=== PATIENT | male | born 1945 | race African-American/Black ===

== ENCOUNTER 2019-05-08 20:21 | Inpatient (IN) | payer MEDICARE, OTHER ==
[~2019-05-08] VITALS: Ht 170.2 cm; Wt 48.6 kg
--- NOTE | 2019-05-08 21:00 | NUR ---
ED Nurse Note: PT BROUGHT IN BY [facility] FROM [facility]. AOX4. PT C/O RIGHT SIDED PAIN, 10/ X 2 WEEKS AGO. PT STATES HE HAS HX OF SPINAL INJURY X 25 YEARS AGO AND BELIEVES PAIN MAY BE BACK DUE TO REINJURING HIS SPINE. VSS. SKIN ASSESSMENT ATTEMPTED BUT PT REFUSED TO BE TURNED DUE TO DISCOMFORT. REDNESS NOTED TO COCCYX AREA. PT PRESENTS WITH ARAUJO CATHETER.
[2019-05-08 21:02] VITALS: BP 121/81
--- NOTE | 2019-05-08 21:03 | Emergency Room Report ---
History of Present Illness General Chief Complaint: Pain Source: Patient, EMS Present Illness HPI Patient is a 74-year-old male presents after increased neck pain as well as extremity weakness. Patient had prior history of spinal cord injury. He is normally wheelchair-bound. Reports having fallen out of his wheelchair several weeks ago. He reports having worsening pain to his neck as well as to his low back. Lower extremities. He has prior history of prostate cancer. Allergies: Coded Allergies: No Known Allergies (Unverified , 05/08/19) Patient History Past Medical History: see triage record, old chart reviewed Reviewed Nursing Documentation: PMH: Agreed; PSxH: Agreed Nursing Documentation-PMH Hx Hypertension: Yes - hx falls, muscle weakness Review of Systems All Other Systems: negative except mentioned in HPI Physical Exam Vital Signs Date Time Temp Pulse Resp B/P (MAP) Pulse Ox O2 Delivery O2 Flow Rate FiO2 05/08/19 20:25 98.8 92 20 150/76 (100) 98 Room Air Sp02 EP Interpretation: reviewed, normal General Appearance: normal inspection, alert, GCS 15, thin, Chronically Ill Head: atraumatic ENT: normal ENT inspection, hearing grossly normal, normal voice Neck: normal inspection, supple, no bony tend, limited range of motion Respiratory: normal inspection, lungs clear, normal breath sounds, no respiratory distress, no retraction, no wheezing Cardiovascular #1: regular rate, rhythm, no edema Gastrointestinal: normal inspection, normal bowel sounds, non tender, soft, no guarding, no hernia Genitourinary: no CVA tenderness Musculoskeletal: normal inspection, back normal, normal range of motion Neurologic: normal inspection, alert, responsive, motor weakness Psychiatric: normal inspection, judgement/insight normal, mood/affect normal Medical Decision Making Diagnostic Impression: Primary Impression: C7 spinal cord injury Additional Impressions: Wheelchair bound Dehydration Prostate CA ER Course Presented for increased neck pain as well as lower extremity pain. Differential diagnosis include was not limited to spinal stenosis, fracture, herniated disc among others. Because of complexity of patient's case laboratory tests and imaging studies were ordered. Patient noted to have unremarkable laboratory testing other than elevated BUN/creatinine. Patient was noted to have prior spinal cord injury is normally wheelchair-bound. Patient was noted to be markedly contracted with limited range of motion in his extremities. Patient was able to twitch his lower extremity slightly.Patient was noted to be awake alert and oriented. He did not appear to have any acute head injury. He was able to tolerate feeding. Patient reports having prostate cancer but is not receiving any treatment at this time. Dr. Godinez was contacted for inpatient management due to need for inpatient monitoring and further workup of weakness and increased pain. CT of the cervical spine read by radiology also showed some cavitary lesions as well as marketed degenerative changes worse at C3-4. Labs Test 05/08/19 21:20 White Blood Count 9.1 K/UL (4.8-10.8) Red Blood Count 3.97 M/UL (4.70-6.10) Hemoglobin 10.6 G/DL (14.2-18.0) Hematocrit 33.3 % (42.0-52.0) Mean Corpuscular Volume 84 FL (80-99) Mean Corpuscular Hemoglobin 26.7 PG (27.0-31.0) Mean Corpuscular Hemoglobin Concent 31.8 G/DL (32.0-36.0) Red Cell Distribution Width 13.0 % (11.6-14.8) Platelet Count 318 K/UL (150-450) Mean Platelet Volume 5.6 FL (6.5-10.1) Neutrophils (%) (Auto) 67.7 % (45.0-75.0) Lymphocytes (%) (Auto) 21.2 % (20.0-45.0) Monocytes (%) (Auto) 8.6 % (1.0-10.0) Eosinophils (%) (Auto) 1.4 % (0.0-3.0) Basophils (%) (Auto) 1.1 % (0.0-2.0) Prothrombin Time 10.8 SEC (9.30-11.50) Prothromb Time International Ratio 1.0 (0.9-1.1) Activated Partial Thromboplast Time 28 SEC (23-33) Sodium Level 142 MMOL/L (136-145) Potassium Level 4.4 MMOL/L (3.5-5.1) Chloride Level 109 MMOL/L (98-107) Carbon Dioxide Level 29 MMOL/L (21-32) Anion Gap 4 mmol/L (5-15) Blood Urea Nitrogen 28 mg/dL (7-18) Creatinine 1.1 MG/DL (0.55-1.30) Estimat Glomerular Filtration Rate mL/min (>60) Glucose Level 125 MG/DL (74-106) Calcium Level 9.5 MG/DL (8.5-10.1) Total Bilirubin 0.2 MG/DL (0.2-1.0) Aspartate Amino Transf (AST/SGOT) 13 U/L (15-37) Alanine Aminotransferase (ALT/SGPT) 19 U/L (12-78) Alkaline Phosphatase 95 U/L (46-116) Total Protein 7.2 G/DL (6.4-8.2) Albumin 2.6 G/DL (3.4-5.0) Globulin 4.6 g/dL Albumin/Globulin Ratio 0.6 (1.0-2.7) Last Vital Signs Date Time Temp Pulse Resp B/P (MAP) Pulse Ox O2 Delivery O2 Flow Rate FiO2 05/08/19 20:25 98.8 92 20 150/76 (100) 98 Room Air Status: improved Disposition: ADMITTED INPATIENT Condition: Stable Chas Owusu MD May 08, 2019 21:03
[2019-05-08] MEDS ORDERED: Morphine Sulfate 2mg/ml Inj(IV/IM USE ONLY) IVP ONE (21:15)
--- NOTE | 2019-05-08 21:33 | NUR ---
ED Nurse Note: MRSA SWAB DONE BUT PT REFUSED CRE/VRE SWAB.
--- NOTE | 2019-05-08 21:33 | NUR ---
ED Nurse Note: PT TO CT VIA MABEL.
[2019-05-08 21:43] LABS: ANION GAP 4 mmol/L (5-15); BLOOD UREA NITROGEN 28 mg/dL (7-18); CALCIUM 9.5 MG/DL (8.5-10.1); CARBON DIOXIDE 29 MMOL/L (21-32); CHLORIDE 109 MMOL/L (98-107); CREATININE 1.1 MG/DL (0.55-1.30); POTASSIUM 4.4 MMOL/L (3.5-5.1); SODIUM 142 MMOL/L (136-145)
[2019-05-08 21:48] LABS: ALANINE AMINOTRANSFERASE 19 U/L (12-78); ALBUMIN 2.6 G/DL (3.4-5.0); ALBUMIN/GLOBULIN RATIO 0.6 (1.0-2.7); ALKALINE PHOSPHATASE 95 U/L (46-116); ASPARTATE AMINO TRANSFERASE 13 U/L (15-37); BILIRUBIN,TOTAL 0.2 MG/DL (0.2-1.0)
--- NOTE | 2019-05-08 21:48 | NUR ---
ED Nurse Note: PT BACK FROM CT VIA GURNEY. PT REPOSITIONED IN GURNEY AFTER CT SCAN. ABLE TO ASSESS SKIN IN MORE DETAIL. MULTIPLE WOUNDS NOTED TO BILATERAL LOWER EXTREMITIES, RIGHT SHOULDER, RIGHT ELBOW. PT CONTRACTED TO ALL EXTREMITIES. PT MOANS AND GRIMACES WITH POSITION CHANGES AND REFUSES FURTHER SKIN ASSESSMENT - UNABLE TO CONDUCT A THOROUGH ASSESSMENT. PHOTOS TAKEN AND UPLOADED TO PT'S EMR.
[2019-05-08 21:51] LABS: BASOPHILS % (AUTO) 1.1 % (0.0-2.0); EOSINOPHILS % (AUTO) 1.4 % (0.0-3.0); HEMATOCRIT 33.3 % (42.0-52.0); HEMOGLOBIN 10.6 G/DL (14.2-18.0); LYMPHOCYTES % (AUTO) 21.2 % (20.0-45.0); MEAN CORPUSCULAR VOLUME 84 FL (80-99); MONOCYTES % (AUTO) 8.6 % (1.0-10.0); NEUTROPHILS % (AUTO) 67.7 % (45.0-75.0); PLATELET COUNT 318 K/UL (150-450); RED BLOOD COUNT 3.97 M/UL (4.70-6.10); WHITE BLOOD COUNT 9.1 K/UL (4.8-10.8)
--- NOTE | 2019-05-08 22:20 | Diagnostic Imaging Report ---
Indication: Neck pain Technique: Spiral acquisitions obtained through the cervical spine. No IV contrast utilized. Multiplanar reconstructions were generated. Total dose length product 397 mGycm. CTDIvol(s) 14 mGy. Dose reduction achieved using automated exposure control. Comparison: none Findings: There is evidence of prior spinal decompression surgery, with laminotomy or laminectomy defects extending from C3 through T1. There is ankylosis of the C4-5 disc, presumably postsurgical. No acute fractures. No dislocations. There is very slight cervicothoracic scoliotic deformity which may be an artifact of positioning. At C2-3, a large osteophyte and/or ossification of the posterior longitudinal ligament protrudes posteriorly, results in borderline narrowing of the spinal canal and may impinge slightly upon the left side of the anterior cord. The neural foramina are preserved. At C3-4, posterior osteophytes and posterior longitudinal ligament ossification there is spinal canal. However, there is a left-sided laminectomy defect decompresses the spinal canal. There is severe stenosis of the right neural foramen and near complete obliteration of the left neural foramen. At C4-5, no significant disc bulge or protrusion or spinal stenosis. There is severe neural foraminal stenosis bilaterally. At C5-6, no significant disc bulge or protrusion or spinal stenosis. There is severe bilateral neural foraminal stenosis. At C6-7, there is mild bilateral neural foraminal stenosis. No significant disc bulge or protrusion or spinal canal stenosis. At C7-T1, there is moderate to severe bilateral neural foraminal stenosis. No significant disc bulge or protrusion or spinal stenosis. Lung apices demonstrate fibrotic changes and bullous changes. There is a 1.7 cm diameter masslike opacity at the right lung apex. 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 This may represent a focus of neoplasm or scarring. Consider dedicated chest CT for further evaluation This agrees with the preliminary interpretation provided overnight by [facility] teleradiology service. The CT scanner at [facility] is accredited by the [employer] and the scans are performed using protocols designed to limit radiation exposure to as low as reasonably achievable to attain images of sufficient resolution adequate for diagnostic evaluation.
[2019-05-08 22:34] LABS: APPEARANCE,URINE CLEAR; BILIRUBIN, URINE NEGATIVE (NEGATIVE); COLOR,URINE PALE YELLOW; GLUCOSE, URINE (UA) NEGATIVE (NEGATIVE); KETONES,URINE NEGATIVE (NEGATIVE); LEUKOCYTE ESTERASE ,URINE 2+ (NEGATIVE); NITRITE,URINE NEGATIVE (NEGATIVE); PH,URINE 6.5 (4.5-8.0); PROTEIN,URINE NEGATIVE (NEGATIVE); UROBILINOGEN,URINE NORMAL MG/DL (0.0-1.0)
[2019-05-08] MEDS ORDERED: cefTRIAXone 1 GM in NS 55 ML IVPB ONE (22:45)
--- NOTE | 2019-05-08 23:00 | NUR ---
NURSE NOTES: Received patient from ED, awake, alert, oriented x4, on room air, no acute distress noted, IV site clean dry and intact, patient has a F/C 16 FR, inserted prior to arrival to ED. Oriented to the room, call light is within reach, bed is lowered, locked, alarm is on. Belongings list been signed and items are accounted for. Patient has 203 $ on him, recounted with MEG Mejia RN, patient is refusing to place money in the safe box with security. Admit orders put in by , will carry them out. Patient prefers to be positioned in the right side, prefers not to be moved in bed. Educated on importance being turned and repositioned in bed. Will continue to monitor for comfort and safety.
[2019-05-08] MEDS ORDERED: Albuterol/Ipratropium 3ml neb HHN PRN (23:15)
[2019-05-09] VITALS: BP 135/92
[2019-05-09] MEDS: Morphine Sulfate 2mg/ml Inj(IV/IM USE ONLY) IVP PRN ×3 (03:15→19:58)
[2019-05-09 04:00] VITALS: BP 123/79
[2019-05-09] MEDS: Enoxaparin 40mg Inj SUBQ SCH (05:42)
[2019-05-09 06:33] LABS: BASOPHILS % (AUTO) 0.9 % (0.0-2.0); EOSINOPHILS % (AUTO) 1.7 % (0.0-3.0); HEMATOCRIT 32.3 % (42.0-52.0); HEMOGLOBIN 10.3 G/DL (14.2-18.0); LYMPHOCYTES % (AUTO) 24.3 % (20.0-45.0); MEAN CORPUSCULAR VOLUME 84 FL (80-99); MONOCYTES % (AUTO) 8.2 % (1.0-10.0); PLATELET COUNT 303 K/UL (150-450); RED BLOOD COUNT 3.84 M/UL (4.70-6.10); RED CELL DISTRIBUTION WIDTH 14.5 % (11.6-14.8); WHITE BLOOD COUNT 8.6 K/UL (4.8-10.8)
[2019-05-09 06:59] LABS: ALANINE AMINOTRANSFERASE 17 U/L (12-78); ALBUMIN 2.6 G/DL (3.4-5.0); ALBUMIN/GLOBULIN RATIO 0.6 (1.0-2.7); ALKALINE PHOSPHATASE 88 U/L (46-116); ANION GAP 4 mmol/L (5-15); ASPARTATE AMINO TRANSFERASE 12 U/L (15-37); BILIRUBIN,TOTAL 0.2 MG/DL (0.2-1.0); BLOOD UREA NITROGEN 27 mg/dL (7-18); CALCIUM 9.5 MG/DL (8.5-10.1); CARBON DIOXIDE 29 MMOL/L (21-32); CHLORIDE 109 MMOL/L (98-107); CHOLESTEROL 152 MG/DL (< 200); CREATININE 1.1 MG/DL (0.55-1.30); HDL CHOLESTEROL 59 MG/DL (40-60); POTASSIUM 5.1 MMOL/L (3.5-5.1); SODIUM 142 MMOL/L (136-145); TRIGLYCERIDES 64 MG/DL (30-150)
--- NOTE | 2019-05-09 07:01 | NUR ---
HAND-OFF: Report given to Jose Roberto EAGLE.
--- NOTE | 2019-05-09 07:46 | NUR ---
NURSE NOTES: received report from [facility] Bourgeois. patient in bed. alert. oriented. verbally responsive. no respiratory distress noted. no c/o pain at this time. IV on LFA 20 saline. fall risk. bed in the lowest position and locked. call light within reach. contact isolation. PPE at all times. will continue to provide plan of care.
--- NOTE | 2019-05-09 07:51 | Nephrology Progress Note ---
Subjective Allergies: Coded Allergies: No Known Allergies (Unverified , 05/08/19) Subjective Full consult dictated Objective Last 24 Hour Vital Signs Date Time Temp Pulse Resp B/P (MAP) Pulse Ox O2 Delivery O2 Flow Rate FiO2 05/09/19 04:00 97.7 77 20 123/79 (94) 05/09/19 00:00 98.0 79 24 135/92 (106) 98 05/08/19 23:32 Room Air 05/08/19 22:55 98.7 80 15 127/82 100 Room Air 05/08/19 22:54 80 15 Room Air 05/08/19 21:02 98.6 86 20 121/81 100 Room Air 05/08/19 20:25 98.8 92 20 150/76 (100) 98 Room Air Intake and Output 05/08/19 05/09/19 18:59 06:59 Output Total 700 ml Balance -700 ml Output Urine Total 700 ml # Voids 1 Laboratory Tests 05/08/19 21:20: White Blood Count 9.1, Red Blood Count 3.97L, Hemoglobin 10.6L, Hematocrit 33.3L , Mean Corpuscular Volume 84, Mean Corpuscular Hemoglobin 26.7L, Mean Corpuscular Hemoglobin Concent 31.8L, Red Cell Distribution Width 13.0, Platelet Count 318, Mean Platelet Volume 5.6L, Neutrophils (%) (Auto) 67.7, Lymphocytes (%) (Auto) 21.2, Monocytes (%) (Auto) 8.6, Eosinophils (%) (Auto) 1.4, Basophils (%) (Auto) 1.1, Prothrombin Time 10.8, Prothromb Time International Ratio 1.0, Activated Partial Thromboplast Time 28, Sodium Level 142, Potassium Level 4.4, Chloride Level 109H, Carbon Dioxide Level 29, Anion Gap 4L, Blood Urea Nitrogen 28H, Creatinine 1.1, Estimat Glomerular Filtration Rate , Glucose Level 125H, Calcium Level 9.5, Total Bilirubin 0.2, Aspartate Amino Transf (AST/SGOT) 13L, Alanine Aminotransferase (ALT/SGPT) 19, Alkaline Phosphatase 95, Creatine Kinase MB 1.2, Troponin I 0.000, Total Protein 7.2, Albumin 2.6L, Globulin 4.6, Albumin/Globulin Ratio 0.6L 05/08/19 22:24: Urine Color Pale yellow, Urine Appearance Clear, Urine pH 6.5, Urine Specific [place] 1.010, Urine Protein Negative, Urine Glucose (UA) Negative, Urine Ketones Negative, Urine Blood Negative, Urine Nitrite Negative, Urine Bilirubin Negative, Urine Urobilinogen Normal, Urine Leukocyte Esterase 2+H, Urine RBC 2- 4H, Urine WBC 15-20H, Urine Squamous Epithelial Cells None, Urine Amorphous Sediment ModerateH, Urine Bacteria ManyH 05/09/19 05:50: White Blood Count 8.6, Red Blood Count 3.84L, Hemoglobin 10.3L, Hematocrit 32.3L , Mean Corpuscular Volume 84, Mean Corpuscular Hemoglobin 26.8L, Mean Corpuscular Hemoglobin Concent 31.9L, Red Cell Distribution Width 14.5, Platelet Count 303, Mean Platelet Volume 4.7L, Neutrophils (%) (Auto) 65.0, Lymphocytes (%) (Auto) 24.3, Monocytes (%) (Auto) 8.2, Eosinophils (%) (Auto) 1.7, Basophils (%) (Auto) 0.9, Sodium Level 142, Potassium Level 5.1, Chloride Level 109H, Carbon Dioxide Level 29, Anion Gap 4L, Blood Urea Nitrogen 27H, Creatinine 1.1, Estimat Glomerular Filtration Rate , Glucose Level 106, Calcium Level 9.5, Total Bilirubin 0.2, Aspartate Amino Transf (AST/SGOT) 12L, Alanine Aminotransferase (ALT/SGPT) 17, Alkaline Phosphatase 88, Troponin I 0.000, Total Protein 7.1, Albumin 2.6L, Globulin 4.5, Albumin/Globulin Ratio 0.6L, Hemoglobin A1c 5.9, Magnesium Level 2.2, Pro-B-Type Natriuretic Peptide 550H, Triglycerides Level 64, Cholesterol Level 152, LDL Cholesterol 77, HDL Cholesterol 59, Cholesterol/HDL Ratio 2.6L Height (Feet): 5 Height (Inches): 7.00 Weight (Pounds): 100 Richard Tena MD May 09, 2019 07:51
[2019-05-09 08:00] VITALS: BP 122/84
--- NOTE | 2019-05-09 08:45 | Consultation ---
DATE OF CONSULTATION: 05/09/2019 CONSULTING PHYSICIAN: Richard Tena M.D. REFERRING PHYSICIAN: Tim Godinez M.D. REASON FOR CONSULTATION: 1. Acute kidney injury. 2. Dehydration. HISTORY OF PRESENT ILLNESS: The patient is a pleasant 74-year-old gentleman admitted for further evaluation and care of increased neck pain and extremity weakness. He does have a history of spinal cord injury. He had fallen out of his wheelchair several weeks ago. Noted to have an elevated BUN to creatinine ratio upon admission. The patient has not been eating or drinking well. He has a history of prostate cancer. No current nausea, vomiting, or diarrhea. PAST MEDICAL HISTORY: Spinal cord injury. PAST SURGICAL HISTORY: Noncontributory. ALLERGIES: No known drug allergies. FAMILY HISTORY: Positive for hypertension. REVIEW OF SYSTEMS: NEUROLOGIC: The patient denies headache, change in vision, syncope, or presyncopal episodes. CARDIOVASCULAR: No current chest pain, palpitations, or angina. PULMONARY: No difficulty breathing, productive cough, or sputum. GASTROINTESTINAL/GENITOURINARY: No change in urine or bowel habits. No nausea, vomiting, or diarrhea. ENDOCRINOLOGY: No night sweats, fevers, or chills. PHYSICAL EXAMINATION: VITAL SIGNS: Blood pressure 123/79, respiratory rate 20, pulse 77, temperature 97.7, and 100% oxygen saturation on room air. GENERAL: The patient is awake, alert, and not in distress. HEENT: Extraocular muscles intact. No lymphadenopathy noted. Oropharyngeal mucosa is clear and dry. CARDIOVASCULAR: S1, S2. No rubs or gallops. PULMONARY: Clear to auscultation bilaterally. No rales, rhonchi, or wheezes. ABDOMINAL: Nondistended and nontender. EXTREMITY: No edema noted. LABORATORY DATA: Laboratories dated 05/09/2019, sodium 143, potassium 5.1, BUN 27, creatinine 1.1. Hemoglobin 10.3, white cell count 8.6, and platelet count 303,000. ASSESSMENT AND PLAN: 1. Acute kidney injury. At this time, mild in nature secondary to pre-renal. We will initiate gentle hydration in light of underlying urinary tract infection. 2. Dehydration. We will initiate gentle hydration in light of current urinary tract infection. 3. UTI. Continue Rocephin. 4. Status post fall, spinal cord injury. Defer management to primary care physician. Let me take this opportunity to thank Dr. Godinez for allowing me to assist in the care of this patient. Richard Tena MD DR: JUAN J JOB#: [id number] CC:
--- NOTE | 2019-05-09 09:59 | History & Physical ---
History and Physical History & Physicial Labs and records are reviewed, Dictation is in progress Tim Godinez MD May 09, 2019 09:59
--- NOTE | 2019-05-09 11:21 | NUR ---
RADIOLOGY DEPT., CHEST X-RAY DONE.-P.DYE
--- NOTE | 2019-05-09 11:47 | NUR ---
RD ASSESSMENT & RECOMMENDATIONS SEE CARE ACTIVITY FOR COMPLETE ASSESSMENT DAILY ESTIMATED NEEDS: Needs based on Underweight, Wounds/ 44.5kg 35-40 kcals/kg 1301-1418 total kcals 1.25-2.0 g protein/kg 56-89 g total protein 25-30 mL/kg 8446-0187 total fluid mLs NUTRITION DIAGNOSIS: Increased kcal/prot intake needs R/T underweight status, wound healing as evidenced by pt cachectic w/ moderate-severe generalized wasting, pt @ 61% IBW w/ low BMI per guidelines, admitted w/ multiple wounds, pending eval. CURRENT DIET:REGULAR PO DIET RECOMMENDATIONS: Liberalized REGULAR/ texture per [facility]ER or as tolerated + ENSURE ENLIVE TID ADDITIONAL RECOMMENDATIONS: * CALIBRATED bedscale wt for accurate CBW, weekly wt monitoring * Ensure Enlive TID w/ meals (350kcal/20g prot per bottle) * Rec appetite stimulant to help improve appetite * Wound healing: Add MVI w/ min 1 tab QD + Vit C 500mg QD : add [place] 1pkt BID * Consider karina count x 48 hrs to ensure adequate oral intake * Monitor BGs closely, need for hypoglycemics/carb controlled diet- A1C 5.9
[2019-05-09 12:00] VITALS: BP 120/80
--- NOTE | 2019-05-09 13:18 | Consultation ---
History of Present Illness General Chief Complaint: Pain Present Illness Allergies: Coded Allergies: No Known Allergies (Unverified , 05/08/19) Patient History Healthcare decision maker Resuscitation status Full Code Advanced Directive on File No Physical Exam Last 24 Hour Vital Signs Date Time Temp Pulse Resp B/P (MAP) Pulse Ox O2 Delivery O2 Flow Rate FiO2 05/09/19 12:00 98.2 84 15 120/80 (93) 97 05/09/19 09:00 Room Air 05/09/19 08:00 98.1 86 18 122/84 (97) 98 05/09/19 04:00 97.7 77 20 123/79 (94) 05/09/19 00:00 98.0 79 24 135/92 (106) 98 05/08/19 23:32 Room Air 05/08/19 22:55 98.7 80 15 127/82 100 Room Air 05/08/19 22:54 80 15 Room Air 05/08/19 21:02 98.6 86 20 121/81 100 Room Air 05/08/19 20:25 98.8 92 20 150/76 (100) 98 Room Air Intake and Output 05/08/19 05/09/19 19:00 07:00 Output Total 700 ml Balance -700 ml Output Urine Total 700 ml # Voids 1 Laboratory Tests Test 05/08/19 21:20 05/08/19 22:24 05/09/19 05:50 White Blood Count 9.1 K/UL (4.8-10.8) 8.6 K/UL (4.8-10.8) Red Blood Count 3.97 M/UL (4.70-6.10) L 3.84 M/UL (4.70-6.10) L Hemoglobin 10.6 G/DL (14.2-18.0) L 10.3 G/DL (14.2-18.0) L Hematocrit 33.3 % (42.0-52.0) L 32.3 % (42.0-52.0) L Mean Corpuscular Volume 84 FL (80-99) 84 FL (80-99) Mean Corpuscular Hemoglobin 26.7 PG (27.0-31.0) L 26.8 PG (27.0-31.0) L Mean Corpuscular Hemoglobin Concent 31.8 G/DL (32.0-36.0) L 31.9 G/DL (32.0-36.0) L Red Cell Distribution Width 13.0 % (11.6-14.8) 14.5 % (11.6-14.8) Platelet Count 318 K/UL (150-450) 303 K/UL (150-450) Mean Platelet Volume 5.6 FL (6.5-10.1) L 4.7 FL (6.5-10.1) L Neutrophils (%) (Auto) 67.7 % (45.0-75.0) 65.0 % (45.0-75.0) Lymphocytes (%) (Auto) 21.2 % (20.0-45.0) 24.3 % (20.0-45.0) Monocytes (%) (Auto) 8.6 % (1.0-10.0) 8.2 % (1.0-10.0) Eosinophils (%) (Auto) 1.4 % (0.0-3.0) 1.7 % (0.0-3.0) Basophils (%) (Auto) 1.1 % (0.0-2.0) 0.9 % (0.0-2.0) Prothrombin Time 10.8 SEC (9.30-11.50) Prothromb Time International Ratio 1.0 (0.9-1.1) Activated Partial Thromboplast Time 28 SEC (23-33) Sodium Level 142 MMOL/L (136-145) 142 MMOL/L (136-145) Potassium Level 4.4 MMOL/L (3.5-5.1) 5.1 MMOL/L (3.5-5.1) Chloride Level 109 MMOL/L (98-107) H 109 MMOL/L (98-107) H Carbon Dioxide Level 29 MMOL/L (21-32) 29 MMOL/L (21-32) Anion Gap 4 mmol/L (5-15) L 4 mmol/L (5-15) L Blood Urea Nitrogen 28 mg/dL (7-18) H 27 mg/dL (7-18) H Creatinine 1.1 MG/DL (0.55-1.30) 1.1 MG/DL (0.55-1.30) Estimat Glomerular Filtration Rate mL/min (>60) mL/min (>60) Glucose Level 125 MG/DL (74-106) H 106 MG/DL (74-106) Calcium Level 9.5 MG/DL (8.5-10.1) 9.5 MG/DL (8.5-10.1) Total Bilirubin 0.2 MG/DL (0.2-1.0) 0.2 MG/DL (0.2-1.0) Aspartate Amino Transf (AST/SGOT) 13 U/L (15-37) L 12 U/L (15-37) L Alanine Aminotransferase (ALT/SGPT) 19 U/L (12-78) 17 U/L (12-78) Alkaline Phosphatase 95 U/L (46-116) 88 U/L (46-116) Creatine Kinase MB 1.2 NG/ML (0.0-3.6) Troponin I 0.000 ng/mL (0.000-0.056) 0.000 ng/mL (0.000-0.056) Total Protein 7.2 G/DL (6.4-8.2) 7.1 G/DL (6.4-8.2) Albumin 2.6 G/DL (3.4-5.0) L 2.6 G/DL (3.4-5.0) L Globulin 4.6 g/dL 4.5 g/dL Albumin/Globulin Ratio 0.6 (1.0-2.7) L 0.6 (1.0-2.7) L Urine Color Pale yellow Urine Appearance Clear Urine pH 6.5 (4.5-8.0) Urine Specific [place] 1.010 (1.005-1.035) Urine Protein Negative (NEGATIVE) Urine Glucose (UA) Negative (NEGATIVE) Urine Ketones Negative (NEGATIVE) Urine Blood Negative (NEGATIVE) Urine Nitrite Negative (NEGATIVE) Urine Bilirubin Negative (NEGATIVE) Urine Urobilinogen Normal MG/DL (0.0-1.0) Urine Leukocyte Esterase 2+ (NEGATIVE) H Urine RBC 2-4 /HPF (0 - 0) H Urine WBC 15-20 /HPF (0 - 0) H Urine Squamous Epithelial Cells None /LPF (NONE/OCC) Urine Amorphous Sediment Moderate /LPF (NONE) H Urine Bacteria Many /HPF (NONE) H Hemoglobin A1c 5.9 % (4.3-6.0) Magnesium Level 2.2 MG/DL (1.8-2.4) Pro-B-Type Natriuretic Peptide 550 pg/mL (0-125) H Triglycerides Level 64 MG/DL (30-150) Cholesterol Level 152 MG/DL (< 200) LDL Cholesterol 77 mg/dL (<100) HDL Cholesterol 59 MG/DL (40-60) Cholesterol/HDL Ratio 2.6 (3.3-4.4) L Height (Feet): 5 Height (Inches): 7.00 Weight (Pounds): 100 Medications Current Medications Medications (Trade) Dose Ordered Sig/Omar Route PRN Reason Start Time Stop Time Status Last Admin Dose Admin Acetaminophen (Tylenol) 650 mg Q4H PRN ORAL Mild Pain (Pain Scale 1-3) 05/08/19 23:15 06/07/19 23:14 Albuterol/ Ipratropium (Albuterol/ Ipratropium) 3 ml Q4H PRN HHN Shortness of Breath 05/08/19 23:15 05/13/19 23:14 Ceftriaxone Sodium 2 gm/ Dextrose 55 ml @ 110 mls/hr Q24H IVPB 05/09/19 22:00 05/16/19 21:59 Dextrose (Dextrose 50%) 25 ml Q30M PRN IV Hypoglycemia 05/08/19 23:15 06/07/19 23:14 Dextrose (Dextrose 50%) 50 ml Q30M PRN IV Hypoglycemia 05/08/19 23:15 06/07/19 23:14 Enoxaparin Sodium (Lovenox) 40 mg Q24H SUBQ 05/09/19 06:00 06/08/19 05:59 05/09/19 05:42 Morphine Sulfate (Morphine Sulfate) 2 mg TID PRN IVP Moderate Pain (Pain Scale 4-6) 05/08/19 23:15 05/15/19 23:14 05/09/19 10:52 Pantoprazole (Protonix) 40 mg DAILY ORAL 05/09/19 09:00 06/08/19 08:59 05/09/19 08:11 Sodium Chloride 1,000 ml @ 75 mls/hr [id number] IV 05/09/19 08:00 06/08/19 07:59 05/09/19 08:11 Assessment/Plan Assessment/Plan: Hematology Consultation Note DOS: 10/1/19 RFC: Lung mass and anemia REQ M:Jalil Godinez HPI Patient is a 74-year-old male presents after increased neck pain as well as extremity weakness. Patient had prior history of spinal cord injury. He is normally wheelchair-bound. Reports having fallen out of his wheelchair several weeks ago. He reports having worsening pain to his neck as well as to his low back. Lower extremities. He has prior history of prostate cancer. In addition noted to be anemic, heme was consulted for eval and rx.psa pordered as well as anemia panel. Coded Allergies: No Known Allergies (Unverified , 05/08/19) Patient History Past Medical History: see triage record, old chart reviewed Reviewed Nursing Documentation: PMH: Agreed; PSxH: Agreed Nursing Documentation-PMH Hx Hypertension: Yes - hx falls, muscle weakness Review of Systems All Other Systems: negative except mentioned in HPI Physical Exam Vital Signs reviewed General Appearance: normal inspection, Chronically Ill ENT: normal ENT inspection, hearing grossly normal, normal voice Chest: normal inspection, lungs clear, normal breath sounds, no respiratory distress, no retraction, no wheezing CV: regular rate, rhythm, no edema GI: normal inspection, normal bowel sounds, non tender, soft, no guarding, no hernia : no CVA tenderness Musculoskeletal: normal inspection, back normal, normal range of motion Neurologic: normal inspection, alert, responsive, motor weakness Labs: noted Imaging: noted Assessment and Recs: # Anemia of chronic disease (or of iron deficiency) due to underlying chronic medical issues, multifactorial --> Anemia workup has been ordered, rule out gi bleed --> No evidence of hemolysis is noted, peripheral smear has been reviewed. --> Hgb goal >7. Transfuse prn. --> Epogen or iron at this time is not particularly indicated --> Medications have been reviewed --> low threshold for gi evaluation in case has occult + # Apical lung mass --> obtain cxr, if present get ct scan --> repeat ct in appeox 6mo # Prostate cancer history --> at this time obtain new psa level --> if >10, consider f/u workup # C7 spinal cord injury Wheelchair bound --> consider to obtain pt/ot --> consider exercise of uppper ext # Dehydration --> appears prenal --> per renal # DJD # DVt ppx lovenox Greatly appreciate consultation. Kevin Carbone MD May 09, 2019 13:18
[2019-05-09 13:45] LABS: FERRITIN 217 NG/ML (8-388); LACTATE DEHYDROGENASE 269 U/L (81-234)
--- NOTE | 2019-05-09 13:48 | Diagnostic Imaging Report ---
Indication: Cough, shortness of breath Technique: One view of the chest Comparison: none Findings: At least 3 fairly dense nodules projecting in the right upper lobe, largest in the perihilar region measuring 2.2 cm in diameter. Additional nodules in the right lung apex are less well-demonstrated, obscured by overlapping ribs, present, also demonstrated on recent CT cervical spine. There is some adjacent scarring. The lungs are otherwise clear. The pleural spaces are clear. The heart size is normal. Impression: Right upper lobe opacities, likely but not definitively calcified. Note that the apical nodules were described on recent cervical spine CT. No acute process otherwise Recommend dedicated chest CT for better characterization
[2019-05-09 14:11] LABS: % IRON SATURATION 14 % (15-50); IRON 31 ug/dL (50-175); TOTAL IRON BINDING CAPACITY 218 ug/dL (250-450)
--- NOTE | 2019-05-09 15:32 | Consultation ---
History of Present Illness General Date patient seen: May 09, 2019 Reason for Hospitalization: Pain Present Illness HPI This is a 74-year-old male with multiple medical comorbidities who presented to [facility] for evaluation of neck pain. Patient states fall recently and since has developed worsening neck pain. Has multiple abrasions. Has wounds. Has not been able to care for them and requires care and management. Admitted to medical service and surgery called to evaluate and assist with care. Patient seen, patient evaluate, chart reviewed. No nausea vomiting fever chills. Labs noted. Imaging noted. Allergies: Coded Allergies: No Known Allergies (Unverified , 05/08/19) Patient History History Provided By: Patient, Medical Record, PMD Healthcare decision maker Resuscitation status Full Code Advanced Directive on File No Past Medical/Surgical History Past Medical/Surgical History: (1) Fall (2) Trauma (3) Open wound (4) Dehydration (5) Prostate CA (6) Wheelchair bound (7) C7 spinal cord injury (8) Neck pain Review of Systems Review of Symptoms General ROS: no weight loss or fever Psychological ROS: no depression or mood changes, no memory loss Ophthalmic ROS: no visual changes or eye irritation ENT ROS: no nasal congestion, hearing loss, dizziness Allergy and Immunology ROS: no allergic symptoms or urticaria Hematological and Lymphatic ROS: no swollen glands, unusual bleeding or bruising Endocrine ROS: no polyuria, polydipsia, weight changes, temperature intolerance Respiratory ROS: no cough, shortness of breath, or wheezing Cardiovascular ROS: no chest pain or dyspnea on exertion Gastrointestinal ROS: denies abdominal pain, no bright red blood in stool. Musculoskeletal ROS: no myalgias or arthralgias Neurological ROS: no TIA or stroke symptoms Dermatological ROS: no new or changing skin lesions, rashes or pruritis Physical Exam Physical Exam General appearance: alert, cooperative, no distress, appears stated age Head: Normocephalic, without obvious abnormality, atraumatic Eyes: conjunctivae/corneas clear. PERRL, EOM's intact. Fundi benign Throat: Lips, mucosa, and tongue normal. Teeth and gums normal Neck: supple, symmetrical, trachea midline, no adenopathy, thyroid: not enlarged, symmetric, no tenderness/mass/nodules, no carotid bruit and no JVD Lungs: clear to auscultation bilaterally Heart: regular rate and rhythm, S1, S2 normal, no murmur, click, rub or gallop Abdomen: soft, non-tender. Bowel sounds normal. No masses, no organomegaly Extremities: extremities normal, atraumatic, no cyanosis or edema Pulses: 2+ and symmetric Skin: Skin color, texture, turgor normal. No rashes or lesions Neurologic: Grossly normal Last 24 Hour Vital Signs Date Time Temp Pulse Resp B/P (MAP) Pulse Ox O2 Delivery O2 Flow Rate FiO2 05/09/19 12:00 98.2 84 15 120/80 (93) 97 05/09/19 09:00 Room Air 05/09/19 08:00 98.1 86 18 122/84 (97) 98 05/09/19 04:00 97.7 77 20 123/79 (94) 05/09/19 00:00 98.0 79 24 135/92 (106) 98 05/08/19 23:32 Room Air 05/08/19 22:55 98.7 80 15 127/82 100 Room Air 05/08/19 22:54 80 15 Room Air 05/08/19 21:02 98.6 86 20 121/81 100 Room Air 05/08/19 20:25 98.8 92 20 150/76 (100) 98 Room Air Intake and Output 05/08/19 05/09/19 19:00 07:00 Output Total 700 ml Balance -700 ml Output Urine Total 700 ml # Voids 1 Laboratory Tests Test 05/08/19 21:20 05/08/19 22:24 05/09/19 05:50 05/09/19 06:00 White Blood Count 9.1 K/UL (4.8-10.8) 8.6 K/UL (4.8-10.8) Red Blood Count 3.97 M/UL (4.70-6.10) L 3.84 M/UL (4.70-6.10) L Hemoglobin 10.6 G/DL (14.2-18.0) L 10.3 G/DL (14.2-18.0) L Hematocrit 33.3 % (42.0-52.0) L 32.3 % (42.0-52.0) L Mean Corpuscular Volume 84 FL (80-99) 84 FL (80-99) Mean Corpuscular Hemoglobin 26.7 PG (27.0-31.0) L 26.8 PG (27.0-31.0) L Mean Corpuscular Hemoglobin Concent 31.8 G/DL (32.0-36.0) L 31.9 G/DL (32.0-36.0) L Red Cell Distribution Width 13.0 % (11.6-14.8) 14.5 % (11.6-14.8) Platelet Count 318 K/UL (150-450) 303 K/UL (150-450) Mean Platelet Volume 5.6 FL (6.5-10.1) L 4.7 FL (6.5-10.1) L Neutrophils (%) (Auto) 67.7 % (45.0-75.0) 65.0 % (45.0-75.0) Lymphocytes (%) (Auto) 21.2 % (20.0-45.0) 24.3 % (20.0-45.0) Monocytes (%) (Auto) 8.6 % (1.0-10.0) 8.2 % (1.0-10.0) Eosinophils (%) (Auto) 1.4 % (0.0-3.0) 1.7 % (0.0-3.0) Basophils (%) (Auto) 1.1 % (0.0-2.0) 0.9 % (0.0-2.0) Prothrombin Time 10.8 SEC (9.30-11.50) Prothromb Time International Ratio 1.0 (0.9-1.1) Activated Partial Thromboplast Time 28 SEC (23-33) Sodium Level 142 MMOL/L (136-145) 142 MMOL/L (136-145) Potassium Level 4.4 MMOL/L (3.5-5.1) 5.1 MMOL/L (3.5-5.1) Chloride Level 109 MMOL/L (98-107) H 109 MMOL/L (98-107) H Carbon Dioxide Level 29 MMOL/L (21-32) 29 MMOL/L (21-32) Anion Gap 4 mmol/L (5-15) L 4 mmol/L (5-15) L Blood Urea Nitrogen 28 mg/dL (7-18) H 27 mg/dL (7-18) H Creatinine 1.1 MG/DL (0.55-1.30) 1.1 MG/DL (0.55-1.30) Estimat Glomerular Filtration Rate mL/min (>60) mL/min (>60) Glucose Level 125 MG/DL (74-106) H 106 MG/DL (74-106) Calcium Level 9.5 MG/DL (8.5-10.1) 9.5 MG/DL (8.5-10.1) Total Bilirubin 0.2 MG/DL (0.2-1.0) 0.2 MG/DL (0.2-1.0) Aspartate Amino Transf (AST/SGOT) 13 U/L (15-37) L 12 U/L (15-37) L Alanine Aminotransferase (ALT/SGPT) 19 U/L (12-78) 17 U/L (12-78) Alkaline Phosphatase 95 U/L (46-116) 88 U/L (46-116) Creatine Kinase MB 1.2 NG/ML (0.0-3.6) Troponin I 0.000 ng/mL (0.000-0.056) 0.000 ng/mL (0.000-0.056) Total Protein 7.2 G/DL (6.4-8.2) 7.1 G/DL (6.4-8.2) Albumin 2.6 G/DL (3.4-5.0) L 2.6 G/DL (3.4-5.0) L Globulin 4.6 g/dL 4.5 g/dL Albumin/Globulin Ratio 0.6 (1.0-2.7) L 0.6 (1.0-2.7) L Urine Color Pale yellow Urine Appearance Clear Urine pH 6.5 (4.5-8.0) Urine Specific [place] 1.010 (1.005-1.035) Urine Protein Negative (NEGATIVE) Urine Glucose (UA) Negative (NEGATIVE) Urine Ketones Negative (NEGATIVE) Urine Blood Negative (NEGATIVE) Urine Nitrite Negative (NEGATIVE) Urine Bilirubin Negative (NEGATIVE) Urine Urobilinogen Normal MG/DL (0.0-1.0) Urine Leukocyte Esterase 2+ (NEGATIVE) H Urine RBC 2-4 /HPF (0 - 0) H Urine WBC 15-20 /HPF (0 - 0) H Urine Squamous Epithelial Cells None /LPF (NONE/OCC) Urine Amorphous Sediment Moderate /LPF (NONE) H Urine Bacteria Many /HPF (NONE) H Hemoglobin A1c 5.9 % (4.3-6.0) Magnesium Level 2.2 MG/DL (1.8-2.4) Pro-B-Type Natriuretic Peptide 550 pg/mL (0-125) H Triglycerides Level 64 MG/DL (30-150) Cholesterol Level 152 MG/DL (< 200) LDL Cholesterol 77 mg/dL (<100) HDL Cholesterol 59 MG/DL (40-60) Cholesterol/HDL Ratio 2.6 (3.3-4.4) L Iron Level 31 ug/dL (50-175) L Total Iron Binding Capacity 218 ug/dL (250-450) L Percent Iron Saturation 14 % (15-50) L Unsaturated Iron Binding 187 ug/dL (112-346) Ferritin 217 NG/ML (8-388) Lactate Dehydrogenase 269 U/L (81-234) H Prostate Specific Antigen 1.35 ng/mL (0.13-4.0) Folate 27.8 NG/ML (8.6-58.9) Height (Feet): 5 Height (Inches): 7.00 Weight (Pounds): 100 Medications Current Medications Medications (Trade) Dose Ordered Sig/Omar Route PRN Reason Start Time Stop Time Status Last Admin Dose Admin Acetaminophen (Tylenol) 650 mg Q4H PRN ORAL Mild Pain (Pain Scale 1-3) 05/08/19 23:15 06/07/19 23:14 Albuterol/ Ipratropium (Albuterol/ Ipratropium) 3 ml Q4H PRN HHN Shortness of Breath 05/08/19 23:15 05/13/19 23:14 Ceftriaxone Sodium 2 gm/ Dextrose 55 ml @ 110 mls/hr Q24H IVPB 05/09/19 22:00 05/16/19 21:59 Dextrose (Dextrose 50%) 25 ml Q30M PRN IV Hypoglycemia 05/08/19 23:15 06/07/19 23:14 Dextrose (Dextrose 50%) 50 ml Q30M PRN IV Hypoglycemia 05/08/19 23:15 06/07/19 23:14 Enoxaparin Sodium (Lovenox) 40 mg Q24H SUBQ 05/09/19 06:00 06/08/19 05:59 05/09/19 05:42 Morphine Sulfate (Morphine Sulfate) 2 mg TID PRN IVP Moderate Pain (Pain Scale 4-6) 05/08/19 23:15 05/15/19 23:14 05/09/19 10:52 Pantoprazole (Protonix) 40 mg DAILY ORAL 05/09/19 09:00 06/08/19 08:59 05/09/19 08:11 Sodium Chloride 1,000 ml @ 75 mls/hr [id number] IV 05/09/19 08:00 06/08/19 07:59 05/09/19 08:11 Assessment/Plan Problem List: (1) Trauma ICD Codes: T14.90XA - Injury, unspecified, initial encounter SNOMED: 071376153 (2) Neck pain Assessment & Plan: Findings: There is evidence of prior spinal decompression surgery, with laminotomy or laminectomy defects extending from C3 through T1. There is ankylosis of the C4-5 disc, presumably postsurgical. No acute fractures. No dislocations. There is very slight cervicothoracic scoliotic deformity which may be an artifact of positioning. At C2-3, a large osteophyte and/or ossification of the posterior longitudinal ligament protrudes posteriorly, results in borderline narrowing of the spinal canal and may impinge slightly upon the left side of the anterior cord. The neural foramina are preserved. At C3-4, posterior osteophytes and posterior longitudinal ligament ossification there is spinal canal. However, there is a left-sided laminectomy defect decompresses the spinal canal. There is severe stenosis of the right neural foramen and near complete obliteration of the left neural foramen. At C4-5, no significant disc bulge or protrusion or spinal stenosis. There is severe neural foraminal stenosis bilaterally. At C5-6, no significant disc bulge or protrusion or spinal stenosis. There is severe bilateral neural foraminal stenosis. At C6-7, there is mild bilateral neural foraminal stenosis. No significant disc bulge or protrusion or spinal canal stenosis. At C7-T1, there is moderate to severe bilateral neural foraminal stenosis. No significant disc bulge or protrusion or spinal stenosis. Lung apices demonstrate fibrotic changes and bullous changes. There is a 1.7 cm diameter masslike opacity at the right lung apex. 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 This may represent a focus of neoplasm or scarring. Consider dedicated chest CT for further evaluation Impression: Right upper lobe opacities, likely but not definitively calcified. Note that the apical nodules were described on recent cervical spine CT. No acute process otherwise Recommend dedicated chest CT for better characterization ICD Codes: M54.2 - Cervicalgia SNOMED: 59460353 (3) Fall ICD Codes: W19.XXXA - Unspecified fall, initial encounter SNOMED: 1059949, [id number] (4) Open wound Assessment & Plan: Pt presented on admission with contractures , Multiple abrasions from fall at [facility]. Pt noted to have two abrasions in close proximity to R clavicle. Both wounds are moist with small amt biofilm. No exudate noted.Abrasion T r elbow . base of wound is pink and dry. dry scab noted to R knee. Pt is emaciated. Non-blanching erythema without induration noted to Sacrum and Bilat ischial tuberosities. Pt denied tenderness when each affected area palpated. R and L heels are blanchable . NO other skin concerns noted. Pt has been educated of potential risks for skin breakdown as pt can be resistive to being repositioned and personal care. Pt encouraged to comply with repositioning and to allowing staff to perform skin care when soiled. Pt verbalized recently having pressure injury on buttocks and was informed risks is greater due to pt recently having pressure injuries, and also due to contractures. Tx.plan: Apply Moisture Barrier paste to Sacrum,R and L buttocks. Cover each area with Optifoam drsg. Change every 3 Days and prn. Apply Cavilon Skin Barrier to R and L hips. Cover each hip with Optifoam drsg. Change every 7 days and prn. Apply Cavilon Skin Barrier to both heels. Cover each heel with Optifoam drsg. Change every 7 days and prn. Cleanse abrasions R shoulder with saline. Apply Silvaosrb Gel. Cover with Optifoam drsg. Change every 7 days and prn. Reposition at least every 2hours or as tolerated. Place pillow between knees. Off-load heels with pillow. ICD Codes: T14.8XXA - Other injury of unspecified body region, initial encounter SNOMED: 679490172 Pablito Lamas May 09, 2019 15:32
[2019-05-09 16:00] VITALS: BP 136/79
--- NOTE | 2019-05-09 16:03 | NUR ---
CASE MANAGEMENT:REVIEW 74 YR OLD MALE BIBA FROM [facility] CC; NECK,SHOULDER,BACK AND RT LEG PAIN PMH: BED BOUND. CA SI: DEHYDRATION. NECK PAIN 98.7 92 20 150/76 98% ON RA BUN+28 IS: IV MORPHINE X1 IV ZOFRAN X1 CT SPINE : TO MED/SURG UNIT IS: IV MORPHINE TID PRN IVF@75/HR LOVENOX SQ Q24
--- NOTE | 2019-05-09 16:30 | Consultation ---
DATE OF CONSULTATION: 05/09/2019 PULMONARY CONSULTATION HISTORY OF PRESENT ILLNESS: This is a 74-year-old male with a history of previous spinal cord injury. He reports having fallen out of his wheelchair several weeks ago and reported neck pain. He was admitted to the hospital for subsequent workup and care. The patient also reports a history of renal problems and prostatic carcinoma. The patient was seen and worked up and I have been consulted regarding his pulmonary condition. At this point, he states he is feeling better and denies any new problems. The patient's past history is notable for chronic muscle weakness. PAST MEDICAL HISTORY: The C7 spinal cord injury and prostate CA. HOME MEDICATIONS: The patient denies. REVIEW OF SYSTEMS: Denies any headaches, hematemesis, melena, hematochezia, or weight loss. PHYSICAL EXAMINATION: GENERAL: Reveals a 74-year-old male. HEENT: Unremarkable. LUNGS: Clear breath sounds bilaterally. No heart murmur. ABDOMEN: Soft. EXTREMITIES: There is no edema. NEUROLOGIC: Unable to elicit because of previous cord injury. LABORATORY DATA: Lab testing was notable for hemoglobin 10.2, otherwise normal CBC and BMP. Creatinine 1.1. Troponin negative. IMPRESSION: 1. No active pulmonary issues. 2. Neck pain. 3. C7 cord injury. 4. Prostate CA. 5. Azotemia. DISCUSSION: Agree with present management and care. We will see as needed. Thank you for the consultation. Flaquito Jewell M.D. DR: URSULA JOB#: [id number] CC:
--- NOTE | 2019-05-09 18:58 | Infectious Diseases Prog Note ---
Assessment/Plan Problems: (1) Catheter-associated urinary tract infection Assessment & Plan: present on admission, with culture is growing gram negative rods, continue ceftriaxone and change mcclendon catheter if not done yet (2) Lung nodule seen on imaging study Assessment & Plan: in the RUL , rule out mets from prostate CA, pulmonary is following , recommend oncology eval (3) C7 spinal cord injury Assessment & Plan: recommend spin ortho eval , and pain management (4) Neck pain Assessment & Plan: due to the above , continue pain meds as per primary (5) Prostate CA Assessment & Plan: with RUL lung nodule, rule out mets, recommend oncology eval Subjective Allergies: Coded Allergies: No Known Allergies (Unverified , 05/08/19) Objective Vital Signs Last 24 Hour Vital Signs Date Time Temp Pulse Resp B/P (MAP) Pulse Ox O2 Delivery O2 Flow Rate FiO2 05/09/19 16:00 98.2 89 18 136/79 (98) 99 05/09/19 12:00 98.2 84 15 120/80 (93) 97 05/09/19 09:00 Room Air 05/09/19 08:00 98.1 86 18 122/84 (97) 98 05/09/19 04:00 97.7 77 20 123/79 (94) 05/09/19 00:00 98.0 79 24 135/92 (106) 98 05/08/19 23:32 Room Air 05/08/19 22:55 98.7 80 15 127/82 100 Room Air 05/08/19 22:54 80 15 Room Air 05/08/19 21:02 98.6 86 20 121/81 100 Room Air 05/08/19 20:25 98.8 92 20 150/76 (100) 98 Room Air Height (Feet): 5 Height (Inches): 7.00 Weight (Pounds): 100 Laboratory Tests Test 05/08/19 21:20 05/08/19 22:24 05/09/19 05:50 05/09/19 06:00 White Blood Count 9.1 K/UL (4.8-10.8) 8.6 K/UL (4.8-10.8) Red Blood Count 3.97 M/UL (4.70-6.10) L 3.84 M/UL (4.70-6.10) L Hemoglobin 10.6 G/DL (14.2-18.0) L 10.3 G/DL (14.2-18.0) L Hematocrit 33.3 % (42.0-52.0) L 32.3 % (42.0-52.0) L Mean Corpuscular Volume 84 FL (80-99) 84 FL (80-99) Mean Corpuscular Hemoglobin 26.7 PG (27.0-31.0) L 26.8 PG (27.0-31.0) L Mean Corpuscular Hemoglobin Concent 31.8 G/DL (32.0-36.0) L 31.9 G/DL (32.0-36.0) L Red Cell Distribution Width 13.0 % (11.6-14.8) 14.5 % (11.6-14.8) Platelet Count 318 K/UL (150-450) 303 K/UL (150-450) Mean Platelet Volume 5.6 FL (6.5-10.1) L 4.7 FL (6.5-10.1) L Neutrophils (%) (Auto) 67.7 % (45.0-75.0) 65.0 % (45.0-75.0) Lymphocytes (%) (Auto) 21.2 % (20.0-45.0) 24.3 % (20.0-45.0) Monocytes (%) (Auto) 8.6 % (1.0-10.0) 8.2 % (1.0-10.0) Eosinophils (%) (Auto) 1.4 % (0.0-3.0) 1.7 % (0.0-3.0) Basophils (%) (Auto) 1.1 % (0.0-2.0) 0.9 % (0.0-2.0) Prothrombin Time 10.8 SEC (9.30-11.50) Prothromb Time International Ratio 1.0 (0.9-1.1) Activated Partial Thromboplast Time 28 SEC (23-33) Sodium Level 142 MMOL/L (136-145) 142 MMOL/L (136-145) Potassium Level 4.4 MMOL/L (3.5-5.1) 5.1 MMOL/L (3.5-5.1) Chloride Level 109 MMOL/L (98-107) H 109 MMOL/L (98-107) H Carbon Dioxide Level 29 MMOL/L (21-32) 29 MMOL/L (21-32) Anion Gap 4 mmol/L (5-15) L 4 mmol/L (5-15) L Blood Urea Nitrogen 28 mg/dL (7-18) H 27 mg/dL (7-18) H Creatinine 1.1 MG/DL (0.55-1.30) 1.1 MG/DL (0.55-1.30) Estimat Glomerular Filtration Rate mL/min (>60) mL/min (>60) Glucose Level 125 MG/DL (74-106) H 106 MG/DL (74-106) Calcium Level 9.5 MG/DL (8.5-10.1) 9.5 MG/DL (8.5-10.1) Total Bilirubin 0.2 MG/DL (0.2-1.0) 0.2 MG/DL (0.2-1.0) Aspartate Amino Transf (AST/SGOT) 13 U/L (15-37) L 12 U/L (15-37) L Alanine Aminotransferase (ALT/SGPT) 19 U/L (12-78) 17 U/L (12-78) Alkaline Phosphatase 95 U/L (46-116) 88 U/L (46-116) Creatine Kinase MB 1.2 NG/ML (0.0-3.6) Troponin I 0.000 ng/mL (0.000-0.056) 0.000 ng/mL (0.000-0.056) Total Protein 7.2 G/DL (6.4-8.2) 7.1 G/DL (6.4-8.2) Albumin 2.6 G/DL (3.4-5.0) L 2.6 G/DL (3.4-5.0) L Globulin 4.6 g/dL 4.5 g/dL Albumin/Globulin Ratio 0.6 (1.0-2.7) L 0.6 (1.0-2.7) L Urine Color Pale yellow Urine Appearance Clear Urine pH 6.5 (4.5-8.0) Urine Specific [place] 1.010 (1.005-1.035) Urine Protein Negative (NEGATIVE) Urine Glucose (UA) Negative (NEGATIVE) Urine Ketones Negative (NEGATIVE) Urine Blood Negative (NEGATIVE) Urine Nitrite Negative (NEGATIVE) Urine Bilirubin Negative (NEGATIVE) Urine Urobilinogen Normal MG/DL (0.0-1.0) Urine Leukocyte Esterase 2+ (NEGATIVE) H Urine RBC 2-4 /HPF (0 - 0) H Urine WBC 15-20 /HPF (0 - 0) H Urine Squamous Epithelial Cells None /LPF (NONE/OCC) Urine Amorphous Sediment Moderate /LPF (NONE) H Urine Bacteria Many /HPF (NONE) H Hemoglobin A1c 5.9 % (4.3-6.0) Magnesium Level 2.2 MG/DL (1.8-2.4) Pro-B-Type Natriuretic Peptide 550 pg/mL (0-125) H Triglycerides Level 64 MG/DL (30-150) Cholesterol Level 152 MG/DL (< 200) LDL Cholesterol 77 mg/dL (<100) HDL Cholesterol 59 MG/DL (40-60) Cholesterol/HDL Ratio 2.6 (3.3-4.4) L Iron Level 31 ug/dL (50-175) L Total Iron Binding Capacity 218 ug/dL (250-450) L Percent Iron Saturation 14 % (15-50) L Unsaturated Iron Binding 187 ug/dL (112-346) Ferritin 217 NG/ML (8-388) Lactate Dehydrogenase 269 U/L (81-234) H Prostate Specific Antigen 1.35 ng/mL (0.13-4.0) Folate 27.8 NG/ML (8.6-58.9) Current Medications Medications (Trade) Dose Ordered Sig/Omar Route PRN Reason Start Time Stop Time Status Last Admin Dose Admin Acetaminophen (Tylenol) 650 mg Q4H PRN ORAL Mild Pain (Pain Scale 1-3) 05/08/19 23:15 06/07/19 23:14 Albuterol/ Ipratropium (Albuterol/ Ipratropium) 3 ml Q4H PRN HHN Shortness of Breath 05/08/19 23:15 05/13/19 23:14 Ceftriaxone Sodium 2 gm/ Dextrose 55 ml @ 110 mls/hr Q24H IVPB 05/09/19 22:00 05/16/19 21:59 Dextrose (Dextrose 50%) 25 ml Q30M PRN IV Hypoglycemia 05/08/19 23:15 06/07/19 23:14 Dextrose (Dextrose 50%) 50 ml Q30M PRN IV Hypoglycemia 05/08/19 23:15 06/07/19 23:14 Enoxaparin Sodium (Lovenox) 40 mg Q24H SUBQ 05/09/19 06:00 06/08/19 05:59 05/09/19 05:42 Morphine Sulfate (Morphine Sulfate) 2 mg TID PRN IVP Moderate Pain (Pain Scale 4-6) 05/08/19 23:15 05/15/19 23:14 05/09/19 10:52 Pantoprazole (Protonix) 40 mg DAILY ORAL 05/09/19 09:00 06/08/19 08:59 05/09/19 08:11 Sodium Chloride 1,000 ml @ 75 mls/hr [id number] IV 05/09/19 08:00 06/08/19 07:59 05/09/19 08:11 Raya Grigsby M.D. May 09, 2019 18:57
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
--- NOTE | 2019-05-09 19:07 | NUR ---
HAND-OFF: Report given to [facility]CO Ontiveros.
--- NOTE | 2019-05-09 19:15 | NUR ---
NURSE NOTES: Received report from FCO Cid. Patient awake and verbally responsive to let his needs known. Breathing unlabored without distress, discomfort, or sob on room air. Verbalizes extreme pain on the right side of body rating 10/10. Will follow up accordingly. IV site noted on the left forearm intact and patent running NS at 75 cc/hr. Lennon intact draining urine. Bed placed at the lowest with alarm, brake, and siderails up for safety. Call light placed within reach. Will continue to monitor and provide care as ordered.
--- NOTE | 2019-05-09 19:20 | NUR ---
NURSE NOTES: Reached Dr. Godinez regarding patient's pain. Patient verbalized difficulty controlling pain within the timed schedule for pain medication. Informed MD about patient's concern. Dr. Godinez ordered Morphine 2mg/ml PRN for severe pain (7-10) Q 6hrs and [place] 5/325 1 tab PRN for moderate pain (4-6) Q 6hrs. Will carry out the order as given and continue to monitor the patient.
[2019-05-09 20:00] VITALS: BP 116/66
[2019-05-09] MEDS: cefTRIAXone 2 GM in D5W 55 ML IVPB SCH (21:57)
[2019-05-10] VITALS: BP 125/81
[2019-05-10] MEDS: Morphine Sulfate 2mg/ml Inj(IV/IM USE ONLY) IVP PRN ×3 (02:50→21:04)
[2019-05-10 04:00] VITALS: BP 129/87
[2019-05-10] MEDS: Enoxaparin 40mg Inj SUBQ SCH (05:31)
[2019-05-10 06:32] LABS: BASOPHILS % (AUTO) 1.1 % (0.0-2.0); EOSINOPHILS % (AUTO) 1.9 % (0.0-3.0); HEMATOCRIT 31.2 % (42.0-52.0); LYMPHOCYTES % (AUTO) 27.5 % (20.0-45.0); MEAN CORPUSCULAR VOLUME 84 FL (80-99); MONOCYTES % (AUTO) 9.3 % (1.0-10.0); NEUTROPHILS % (AUTO) 60.1 % (45.0-75.0); PLATELET COUNT 276 K/UL (150-450); RED CELL DISTRIBUTION WIDTH 14.6 % (11.6-14.8); WHITE BLOOD COUNT 7.3 K/UL (4.8-10.8)
[2019-05-10 06:42] LABS: ANION GAP 5 mmol/L (5-15); BLOOD UREA NITROGEN 29 mg/dL (7-18); CALCIUM 9.5 MG/DL (8.5-10.1); CARBON DIOXIDE 26 MMOL/L (21-32); CHLORIDE 107 MMOL/L (98-107); CREATININE 1.1 MG/DL (0.55-1.30); POTASSIUM 5.2 MMOL/L (3.5-5.1); SODIUM 138 MMOL/L (136-145)
--- NOTE | 2019-05-10 07:16 | NUR ---
HAND-OFF: Report given to [facility]CO Cid.
--- NOTE | 2019-05-10 07:41 | NUR ---
NURSE NOTES: received report from Minsu,RN. patient in bed, alert. oriented. verbally responsive. no respiratory distress noted. c/o pain on neck and rt side of body 02/15. pain med due on 849. RN provided pillow support and changing position. IV on LFA20g running fluid@ 75. F/c draining. bed in the lowest position an
--- NOTE | 2019-05-10 07:43 | NUR ---
NURSE NOTES: cont. bed in the lowest position and locked. call light within reach. will continue to provide plan of care.
[2019-05-10 08:00] VITALS: BP 118/76
--- NOTE | 2019-05-10 08:23 | Nephrology Progress Note ---
Assessment/Plan Assessment/Plan: A/P 1. ANTHONY. At this time, mild in nature secondary to pre-renal. - Resolved. DC IVFs 2. Dehydration. Resolved 3. UTI. Continue Rocephin. 4. Status post fall, spinal cord injury. Defer management to primary care physician. 5. Mild Hyperk+. Just monitor for now. Stay off any K+ supplements Subjective Date patient seen: May 10, 2019 Time patient seen: 08:21 ROS Limited/Unobtainable: No Allergies: Coded Allergies: No Known Allergies (Unverified , 05/08/19) Subjective Patient resting in no overt distress Objective Last 24 Hour Vital Signs Date Time Temp Pulse Resp B/P (MAP) Pulse Ox O2 Delivery O2 Flow Rate FiO2 05/10/19 08:00 96.6 82 16 118/76 (90) 95 05/10/19 05:43 99.4 05/10/19 04:00 97.9 70 18 129/87 (101) 98 05/10/19 00:00 99.6 79 20 125/81 (96) 96 05/09/19 21:00 Room Air 05/09/19 20:00 99.7 83 20 116/66 (83) 96 05/09/19 16:00 98.2 89 18 136/79 (98) 99 05/09/19 12:00 98.2 84 15 120/80 (93) 97 05/09/19 09:00 Room Air Intake and Output 05/09/19 05/10/19 18:59 06:59 Intake Total 1100 ml 880 ml Output Total 500 ml 900 ml Balance 600 ml -20 ml Intake Oral 500 ml IV Total 600 ml 880 ml Output Urine Total 500 ml 900 ml # Voids 1 Laboratory Tests 05/10/19 06:00: White Blood Count 7.3, Red Blood Count 3.70L, Hemoglobin 10.0L, Hematocrit 31.2L , Mean Corpuscular Volume 84, Mean Corpuscular Hemoglobin 27.0, Mean Corpuscular Hemoglobin Concent 31.9L, Red Cell Distribution Width 14.6, Platelet Count 276, Mean Platelet Volume 4.7L, Neutrophils (%) (Auto) 60.1, Lymphocytes (%) (Auto) 27.5, Monocytes (%) (Auto) 9.3, Eosinophils (%) (Auto) 1.9, Basophils (%) (Auto) 1.1, Sodium Level 138, Potassium Level 5.2H, Chloride Level 107, Carbon Dioxide Level 26, Anion Gap 5, Blood Urea Nitrogen 29H, Creatinine 1.1, Estimat Glomerular Filtration Rate , Glucose Level 95, Calcium Level 9.5, Troponin I 0.000 Height (Feet): 5 Height (Inches): 7.00 Weight (Pounds): 107 General Appearance: no apparent distress EENT: normal ENT inspection Neck: normal alignment, supple Cardiovascular: normal rate, regular rhythm Respiratory/Chest: lungs clear, normal breath sounds Abdomen: non tender, soft Edema: no edema noted Arm (L), no edema noted Arm (R), no edema noted Leg (L), no edema noted Leg (R), no edema noted Pedal (L), no edema noted Pedal (R), no edema noted Generalized Richard Tena MD May 10, 2019 08:23
--- NOTE | 2019-05-10 08:47 | Consultation ---
History of Present Illness General Date patient seen: May 10, 2019 Present Illness Allergies: Coded Allergies: No Known Allergies (Unverified , 05/08/19) Patient History Healthcare decision maker Resuscitation status Full Code Advanced Directive on File No Physical Exam Last 24 Hour Vital Signs Date Time Temp Pulse Resp B/P (MAP) Pulse Ox O2 Delivery O2 Flow Rate FiO2 05/10/19 08:00 96.6 82 16 118/76 (90) 95 05/10/19 05:43 99.4 05/10/19 04:00 97.9 70 18 129/87 (101) 98 05/10/19 00:00 99.6 79 20 125/81 (96) 96 05/09/19 21:00 Room Air 05/09/19 20:00 99.7 83 20 116/66 (83) 96 05/09/19 16:00 98.2 89 18 136/79 (98) 99 05/09/19 12:00 98.2 84 15 120/80 (93) 97 05/09/19 09:00 Room Air Intake and Output 05/09/19 05/10/19 18:59 06:59 Intake Total 1100 ml 880 ml Output Total 500 ml 900 ml Balance 600 ml -20 ml Intake Oral 500 ml IV Total 600 ml 880 ml Output Urine Total 500 ml 900 ml # Voids 1 Laboratory Tests Test 05/10/19 06:00 White Blood Count 7.3 K/UL (4.8-10.8) Red Blood Count 3.70 M/UL (4.70-6.10) L Hemoglobin 10.0 G/DL (14.2-18.0) L Hematocrit 31.2 % (42.0-52.0) L Mean Corpuscular Volume 84 FL (80-99) Mean Corpuscular Hemoglobin 27.0 PG (27.0-31.0) Mean Corpuscular Hemoglobin Concent 31.9 G/DL (32.0-36.0) L Red Cell Distribution Width 14.6 % (11.6-14.8) Platelet Count 276 K/UL (150-450) Mean Platelet Volume 4.7 FL (6.5-10.1) L Neutrophils (%) (Auto) 60.1 % (45.0-75.0) Lymphocytes (%) (Auto) 27.5 % (20.0-45.0) Monocytes (%) (Auto) 9.3 % (1.0-10.0) Eosinophils (%) (Auto) 1.9 % (0.0-3.0) Basophils (%) (Auto) 1.1 % (0.0-2.0) Sodium Level 138 MMOL/L (136-145) Potassium Level 5.2 MMOL/L (3.5-5.1) H Chloride Level 107 MMOL/L (98-107) Carbon Dioxide Level 26 MMOL/L (21-32) Anion Gap 5 mmol/L (5-15) Blood Urea Nitrogen 29 mg/dL (7-18) H Creatinine 1.1 MG/DL (0.55-1.30) Estimat Glomerular Filtration Rate mL/min (>60) Glucose Level 95 MG/DL (74-106) Calcium Level 9.5 MG/DL (8.5-10.1) Troponin I 0.000 ng/mL (0.000-0.056) Height (Feet): 5 Height (Inches): 7.00 Weight (Pounds): 107 Medications Current Medications Medications (Trade) Dose Ordered Sig/Omar Route PRN Reason Start Time Stop Time Status Last Admin Dose Admin Acetaminophen (Tylenol) 650 mg Q4H PRN ORAL Mild Pain (Pain Scale 1-3) 05/08/19 23:15 06/07/19 23:14 Acetaminophen/ Hydrocodone Bitart ([place] 5/325) 1 tab Q6H PRN ORAL Moderate Pain (4-6) 05/09/19 19:45 05/16/19 19:44 Albuterol/ Ipratropium (Albuterol/ Ipratropium) 3 ml Q4H PRN HHN Shortness of Breath 05/08/19 23:15 05/13/19 23:14 Ceftriaxone Sodium 2 gm/ Dextrose 55 ml @ 110 mls/hr Q24H IVPB 05/09/19 22:00 05/16/19 21:59 05/09/19 21:57 Dextrose (Dextrose 50%) 25 ml Q30M PRN IV Hypoglycemia 05/08/19 23:15 06/07/19 23:14 Dextrose (Dextrose 50%) 50 ml Q30M PRN IV Hypoglycemia 05/08/19 23:15 06/07/19 23:14 Enoxaparin Sodium (Lovenox) 40 mg Q24H SUBQ 05/09/19 06:00 06/08/19 05:59 05/10/19 05:31 Morphine Sulfate (Morphine Sulfate) 2 mg Q6H PRN IVP Severe Pain (7-10) 05/09/19 19:45 05/16/19 19:44 05/10/19 02:50 Pantoprazole (Protonix) 40 mg DAILY ORAL 05/09/19 09:00 06/08/19 08:59 05/09/19 08:11 Sodium Chloride 1,000 ml @ 75 mls/hr [id number] IV 05/09/19 08:00 06/08/19 07:59 05/10/19 06:45 Assessment/Plan Assessment/Plan: (1) Cervicalgia (2) Cervical Spinal Stenosis (3) Cervical Spondylosis (4) Cervical Radiculopathy (5) H/O Cervical surgery seen dictated Fernando Acosta May 10, 2019 08:47
--- NOTE | 2019-05-10 08:55 | Pulmonology Progress Note ---
Assessment/Plan Assessment/Plan IMPRESSION: 1. No active pulmonary issues. 2. Neck pain. 3. C7 cord injury. 4. Prostate CA. 5. Azotemia. DISCUSSION: Agree with present management and care. I will see as needed. Thank you for the consultation. Subjective Interval Events: None new Constitutional: Reports: no symptoms HEENT: Repors: no symptoms Respiratory: Reports: no symptoms Cardiovascular: Reports: no symptoms Gastrointestinal/Abdominal: Reports: no symptoms Allergies: Coded Allergies: No Known Allergies (Unverified , 05/08/19) Objective Last 24 Hour Vital Signs Date Time Temp Pulse Resp B/P (MAP) Pulse Ox O2 Delivery O2 Flow Rate FiO2 05/10/19 08:00 96.6 82 16 118/76 (90) 95 05/10/19 05:43 99.4 05/10/19 04:00 97.9 70 18 129/87 (101) 98 05/10/19 00:00 99.6 79 20 125/81 (96) 96 05/09/19 21:00 Room Air 05/09/19 20:00 99.7 83 20 116/66 (83) 96 05/09/19 16:00 98.2 89 18 136/79 (98) 99 05/09/19 12:00 98.2 84 15 120/80 (93) 97 05/09/19 09:00 Room Air Intake and Output 05/09/19 05/10/19 18:59 06:59 Intake Total 1100 ml 880 ml Output Total 500 ml 900 ml Balance 600 ml -20 ml Intake Oral 500 ml IV Total 600 ml 880 ml Output Urine Total 500 ml 900 ml # Voids 1 General Appearance: no acute distress HEENT: normocephalic Respiratory/Chest: chest wall non-tender, lungs clear Cardiovascular: normal peripheral pulses, normal rate Microbiology Date/Time Source Procedure Growth Status 05/08/19 22:24 Urine,Clean Catch Urine Culture - Preliminary Gram Negative Henry Resulted Laboratory Tests 05/10/19 06:00: White Blood Count 7.3, Red Blood Count 3.70L, Hemoglobin 10.0L, Hematocrit 31.2L , Mean Corpuscular Volume 84, Mean Corpuscular Hemoglobin 27.0, Mean Corpuscular Hemoglobin Concent 31.9L, Red Cell Distribution Width 14.6, Platelet Count 276, Mean Platelet Volume 4.7L, Neutrophils (%) (Auto) 60.1, Lymphocytes (%) (Auto) 27.5, Monocytes (%) (Auto) 9.3, Eosinophils (%) (Auto) 1.9, Basophils (%) (Auto) 1.1, Sodium Level 138, Potassium Level 5.2H, Chloride Level 107, Carbon Dioxide Level 26, Anion Gap 5, Blood Urea Nitrogen 29H, Creatinine 1.1, Estimat Glomerular Filtration Rate , Glucose Level 95, Calcium Level 9.5, Troponin I 0.000 Current Medications Medications (Trade) Dose Ordered Sig/Omar Route PRN Reason Start Time Stop Time Status Last Admin Dose Admin Acetaminophen (Tylenol) 650 mg Q4H PRN ORAL Mild Pain (Pain Scale 1-3) 05/08/19 23:15 06/07/19 23:14 Acetaminophen/ Hydrocodone Bitart ([place] 5/325) 1 tab Q6H PRN ORAL Moderate Pain (4-6) 05/09/19 19:45 05/16/19 19:44 Albuterol/ Ipratropium (Albuterol/ Ipratropium) 3 ml Q4H PRN HHN Shortness of Breath 05/08/19 23:15 05/13/19 23:14 Ceftriaxone Sodium 2 gm/ Dextrose 55 ml @ 110 mls/hr Q24H IVPB 05/09/19 22:00 05/16/19 21:59 05/09/19 21:57 Dextrose (Dextrose 50%) 25 ml Q30M PRN IV Hypoglycemia 05/08/19 23:15 06/07/19 23:14 Dextrose (Dextrose 50%) 50 ml Q30M PRN IV Hypoglycemia 05/08/19 23:15 06/07/19 23:14 Enoxaparin Sodium (Lovenox) 40 mg Q24H SUBQ 05/09/19 06:00 06/08/19 05:59 05/10/19 05:31 Morphine Sulfate (Morphine Sulfate) 2 mg Q6H PRN IVP Severe Pain (7-10) 05/09/19 19:45 05/16/19 19:44 05/10/19 02:50 Pantoprazole (Protonix) 40 mg DAILY ORAL 05/09/19 09:00 06/08/19 08:59 05/09/19 08:11 Sodium Chloride 1,000 ml @ 75 mls/hr [id number] IV 05/09/19 08:00 06/08/19 07:59 05/10/19 06:45 Flaquito Jewell MD May 10, 2019 08:55
--- NOTE | 2019-05-10 09:00 | NUR ---
NURSE NOTES: Patient seen by MAURIZIO acosta. He is going to referal patient to Neuro surgeon. MAURIZIO Acosta will call to .
--- NOTE | 2019-05-10 09:57 | Hematology/Onc Progress Note ---
Assessment/Plan Assessment/Plan Assessment and Recs: # Anemia of chronic disease due to underlying chronic medical issues, multifactorial --> Anemia workup has been ordered, rule out gi bleed --> No evidence of hemolysis is noted, peripheral smear has been reviewed. --> Hgb goal >7. Transfuse prn. --> Epogen or iron at this time is not particularly indicated --> Medications have been reviewed --> low threshold for gi evaluation in case has occult + # Apical lung mass --> obtain cxr, if present get ct scan --> repeat ct in appeox 6mo # Prostate cancer history --> psa is 1.35 --> trend q6mo # C7 spinal cord injury Wheelchair bound --> consider to obtain pt/ot --> consider exercise of uppper ext --> neuro surg recs # Dehydration --> appears prenal --> per renal # DJD # DVt ppx lovenox Greatly appreciate consultation. Subjective Constitutional: Denies: no symptoms, chills, fever, malaise, weakness, other HEENT: Denies: no symptoms, eye pain, blurred vision, tearing, double vision, ear pain, ear discharge, nose pain, nose congestion, throat pain, throat swelling, mouth pain, mouth swelling, other Cardiovascular: Denies: no symptoms, chest pain, edema, irregular heart rate, lightheadedness, palpitations, syncope, other Gastrointestinal/Abdominal: Denies: no symptoms, abdomen distended, abdominal pain, black stools, tarry stools, blood in stool, constipated, diarrhea, difficulty swallowing, nausea, poor appetite, poor fluid intake, rectal bleeding , vomiting, other Genitourinary: Denies: no symptoms, burning, discharge, frequency, flank pain, hematuria, incontinence, pain, urgency, other Neurologic/Psychiatric: Denies: no symptoms, anxiety, depressed, emotional problems, headache, numbness, paresthesia, pre-existing deficit, seizure, tingling, tremors, weakness, other Endocrine: Denies: no symptoms, excessive sweating, flushing, intolerance to cold, intolerance to heat, increased hunger, increased thirst, increased urine, unexplained weight gain, unexplained weight loss, other Hematologic/Lymphatic: Denies: no symptoms, anemia, easy bleeding, easy bruising, adenopathy, other Allergies: Coded Allergies: No Known Allergies (Unverified , 05/08/19) Subjective 05/10: no events, no bleeding, no night sweats, no f/c Objective Objective Current Medications Medications (Trade) Dose Ordered Sig/Omar Route PRN Reason Start Time Stop Time Status Last Admin Dose Admin Acetaminophen (Tylenol) 650 mg Q4H PRN ORAL Mild Pain (Pain Scale 1-3) 05/08/19 23:15 06/07/19 23:14 Acetaminophen/ Hydrocodone Bitart ([place] 5/325) 1 tab Q6H PRN ORAL Moderate Pain (4-6) 05/09/19 19:45 05/16/19 19:44 Albuterol/ Ipratropium (Albuterol/ Ipratropium) 3 ml Q4H PRN HHN Shortness of Breath 05/08/19 23:15 05/13/19 23:14 Ceftriaxone Sodium 2 gm/ Dextrose 55 ml @ 110 mls/hr Q24H IVPB 05/09/19 22:00 05/16/19 21:59 05/09/19 21:57 Dextrose (Dextrose 50%) 25 ml Q30M PRN IV Hypoglycemia 05/08/19 23:15 06/07/19 23:14 Dextrose (Dextrose 50%) 50 ml Q30M PRN IV Hypoglycemia 05/08/19 23:15 06/07/19 23:14 Enoxaparin Sodium (Lovenox) 40 mg Q24H SUBQ 05/09/19 06:00 06/08/19 05:59 05/10/19 05:31 Morphine Sulfate (Morphine Sulfate) 2 mg Q6H PRN IVP Severe Pain (7-10) 05/09/19 19:45 05/16/19 19:44 05/10/19 09:00 Pantoprazole (Protonix) 40 mg DAILY ORAL 05/09/19 09:00 06/08/19 08:59 05/10/19 08:59 Sodium Chloride 1,000 ml @ 75 mls/hr [id number] IV 05/09/19 08:00 06/08/19 07:59 05/10/19 06:45 Last 24 Hour Vital Signs Date Time Temp Pulse Resp B/P (MAP) Pulse Ox O2 Delivery O2 Flow Rate FiO2 05/10/19 09:00 Room Air 05/10/19 08:00 96.6 82 16 118/76 (90) 95 05/10/19 05:43 99.4 05/10/19 04:00 97.9 70 18 129/87 (101) 98 05/10/19 00:00 99.6 79 20 125/81 (96) 96 05/09/19 21:00 Room Air 05/09/19 20:00 99.7 83 20 116/66 (83) 96 05/09/19 16:00 98.2 89 18 136/79 (98) 99 05/09/19 12:00 98.2 84 15 120/80 (93) 97 05/09/19 09:00 Room Air 05/09/19 08:00 98.1 86 18 122/84 (97) 98 05/09/19 04:00 97.7 77 20 123/79 (94) 05/09/19 00:00 98.0 79 24 135/92 (106) 98 05/08/19 23:32 Room Air 05/08/19 22:55 98.7 80 15 127/82 100 Room Air 05/08/19 22:54 80 15 Room Air 05/08/19 21:02 98.6 86 20 121/81 100 Room Air 05/08/19 20:25 98.8 92 20 150/76 (100) 98 Room Air Intake and Output 05/09/19 05/10/19 18:59 06:59 Intake Total 1100 ml 880 ml Output Total 500 ml 900 ml Balance 600 ml -20 ml Intake Oral 500 ml IV Total 600 ml 880 ml Output Urine Total 500 ml 900 ml # Voids 1 Labs Test 05/08/19 21:20 05/08/19 22:24 05/09/19 05:50 05/09/19 06:00 White Blood Count 9.1 K/UL (4.8-10.8) 8.6 K/UL (4.8-10.8) Red Blood Count 3.97 M/UL (4.70-6.10) 3.84 M/UL (4.70-6.10) Hemoglobin 10.6 G/DL (14.2-18.0) 10.3 G/DL (14.2-18.0) Hematocrit 33.3 % (42.0-52.0) 32.3 % (42.0-52.0) Mean Corpuscular Volume 84 FL (80-99) 84 FL (80-99) Mean Corpuscular Hemoglobin 26.7 PG (27.0-31.0) 26.8 PG (27.0-31.0) Mean Corpuscular Hemoglobin Concent 31.8 G/DL (32.0-36.0) 31.9 G/DL (32.0-36.0) Red Cell Distribution Width 13.0 % (11.6-14.8) 14.5 % (11.6-14.8) Platelet Count 318 K/UL (150-450) 303 K/UL (150-450) Mean Platelet Volume 5.6 FL (6.5-10.1) 4.7 FL (6.5-10.1) Neutrophils (%) (Auto) 67.7 % (45.0-75.0) 65.0 % (45.0-75.0) Lymphocytes (%) (Auto) 21.2 % (20.0-45.0) 24.3 % (20.0-45.0) Monocytes (%) (Auto) 8.6 % (1.0-10.0) 8.2 % (1.0-10.0) Eosinophils (%) (Auto) 1.4 % (0.0-3.0) 1.7 % (0.0-3.0) Basophils (%) (Auto) 1.1 % (0.0-2.0) 0.9 % (0.0-2.0) Prothrombin Time 10.8 SEC (9.30-11.50) Prothromb Time International Ratio 1.0 (0.9-1.1) Activated Partial Thromboplast Time 28 SEC (23-33) Sodium Level 142 MMOL/L (136-145) 142 MMOL/L (136-145) Potassium Level 4.4 MMOL/L (3.5-5.1) 5.1 MMOL/L (3.5-5.1) Chloride Level 109 MMOL/L (98-107) 109 MMOL/L (98-107) Carbon Dioxide Level 29 MMOL/L (21-32) 29 MMOL/L (21-32) Anion Gap 4 mmol/L (5-15) 4 mmol/L (5-15) Blood Urea Nitrogen 28 mg/dL (7-18) 27 mg/dL (7-18) Creatinine 1.1 MG/DL (0.55-1.30) 1.1 MG/DL (0.55-1.30) Estimat Glomerular Filtration Rate mL/min (>60) mL/min (>60) Glucose Level 125 MG/DL (74-106) 106 MG/DL (74-106) Calcium Level 9.5 MG/DL (8.5-10.1) 9.5 MG/DL (8.5-10.1) Total Bilirubin 0.2 MG/DL (0.2-1.0) 0.2 MG/DL (0.2-1.0) Aspartate Amino Transf (AST/SGOT) 13 U/L (15-37) 12 U/L (15-37) Alanine Aminotransferase (ALT/SGPT) 19 U/L (12-78) 17 U/L (12-78) Alkaline Phosphatase 95 U/L (46-116) 88 U/L (46-116) Creatine Kinase MB 1.2 NG/ML (0.0-3.6) Troponin I 0.000 ng/mL (0.000-0.056) 0.000 ng/mL (0.000-0.056) Total Protein 7.2 G/DL (6.4-8.2) 7.1 G/DL (6.4-8.2) Albumin 2.6 G/DL (3.4-5.0) 2.6 G/DL (3.4-5.0) Globulin 4.6 g/dL 4.5 g/dL Albumin/Globulin Ratio 0.6 (1.0-2.7) 0.6 (1.0-2.7) Urine Color Pale yellow Urine Appearance Clear Urine pH 6.5 (4.5-8.0) Urine Specific [place] 1.010 (1.005-1.035) Urine Protein Negative (NEGATIVE) Urine Glucose (UA) Negative (NEGATIVE) Urine Ketones Negative (NEGATIVE) Urine Blood Negative (NEGATIVE) Urine Nitrite Negative (NEGATIVE) Urine Bilirubin Negative (NEGATIVE) Urine Urobilinogen Normal MG/DL (0.0-1.0) Urine Leukocyte Esterase 2+ (NEGATIVE) Urine RBC 2-4 /HPF (0 - 0) Urine WBC 15-20 /HPF (0 - 0) Urine Squamous Epithelial Cells None /LPF (NONE/OCC) Urine Amorphous Sediment Moderate /LPF (NONE) Urine Bacteria Many /HPF (NONE) Hemoglobin A1c 5.9 % (4.3-6.0) Magnesium Level 2.2 MG/DL (1.8-2.4) Pro-B-Type Natriuretic Peptide 550 pg/mL (0-125) Triglycerides Level 64 MG/DL (30-150) Cholesterol Level 152 MG/DL (< 200) LDL Cholesterol 77 mg/dL (<100) HDL Cholesterol 59 MG/DL (40-60) Cholesterol/HDL Ratio 2.6 (3.3-4.4) Iron Level 31 ug/dL (50-175) Total Iron Binding Capacity 218 ug/dL (250-450) Percent Iron Saturation 14 % (15-50) Unsaturated Iron Binding 187 ug/dL (112-346) Ferritin 217 NG/ML (8-388) Lactate Dehydrogenase 269 U/L (81-234) Prostate Specific Antigen 1.35 ng/mL (0.13-4.0) Folate 27.8 NG/ML (8.6-58.9) Test 05/10/19 06:00 White Blood Count 7.3 K/UL (4.8-10.8) Red Blood Count 3.70 M/UL (4.70-6.10) Hemoglobin 10.0 G/DL (14.2-18.0) Hematocrit 31.2 % (42.0-52.0) Mean Corpuscular Volume 84 FL (80-99) Mean Corpuscular Hemoglobin 27.0 PG (27.0-31.0) Mean Corpuscular Hemoglobin Concent 31.9 G/DL (32.0-36.0) Red Cell Distribution Width 14.6 % (11.6-14.8) Platelet Count 276 K/UL (150-450) Mean Platelet Volume 4.7 FL (6.5-10.1) Neutrophils (%) (Auto) 60.1 % (45.0-75.0) Lymphocytes (%) (Auto) 27.5 % (20.0-45.0) Monocytes (%) (Auto) 9.3 % (1.0-10.0) Eosinophils (%) (Auto) 1.9 % (0.0-3.0) Basophils (%) (Auto) 1.1 % (0.0-2.0) Sodium Level 138 MMOL/L (136-145) Potassium Level 5.2 MMOL/L (3.5-5.1) Chloride Level 107 MMOL/L (98-107) Carbon Dioxide Level 26 MMOL/L (21-32) Anion Gap 5 mmol/L (5-15) Blood Urea Nitrogen 29 mg/dL (7-18) Creatinine 1.1 MG/DL (0.55-1.30) Estimat Glomerular Filtration Rate mL/min (>60) Glucose Level 95 MG/DL (74-106) Calcium Level 9.5 MG/DL (8.5-10.1) Troponin I 0.000 ng/mL (0.000-0.056) Height (Feet): 5 Height (Inches): 7.00 Weight (Pounds): 107 Objective Vital Signs reviewed General Appearance: normal inspection, Chronically Ill ENT: normal ENT inspection, hearing grossly normal, normal voice Chest: normal inspection, lungs clear, normal breath sounds, no respiratory distress, no retraction, no wheezing CV: regular rate, rhythm, no edema GI: normal inspection, normal bowel sounds, non tender, soft, no guarding, no hernia : no CVA tenderness Musculoskeletal: normal inspection, back normal, normal range of motion Neurologic: normal inspection, alert, responsive, motor weakness Kevin Carbone MD May 10, 2019 09:57
--- NOTE | 2019-05-10 10:43 | General Progress Note ---
Assessment/Plan Status: stable Assessment/Plan: S: i am in pain O: bed bound, relatively controlled pain. No Cp or sob PHYSICAL EXAMINATION:HEAD AND NECK: Atraumatic and normocephalic. CHEST: Clear to auscultation. No wheezing.ABDOMEN: Soft. No organomegaly. MUSCULOSKELETAL: Positive for quadriparesis, paraplegia, NEUROLOGY: The patient is awake, alert, oriented x3. LABORATORY DATA: Labs dated May 09 IMAGING: CXR ASSESSMENT: 1. Acute on chronic pain. 2. Quadriparesis and cervical injuries. 3. UTI. 4. Pain management. 5. Bedridden and quadriplegic. 6. GI and DVT prophylaxis. 7. Neurogenic bladder. 8. Prostate CA Plan: Pain management Optimse pain meds Subjective Allergies: Coded Allergies: No Known Allergies (Unverified , 05/08/19) Objective Last 24 Hour Vital Signs Date Time Temp Pulse Resp B/P (MAP) Pulse Ox O2 Delivery O2 Flow Rate FiO2 05/10/19 09:00 Room Air 05/10/19 08:00 96.6 82 16 118/76 (90) 95 05/10/19 05:43 99.4 05/10/19 04:00 97.9 70 18 129/87 (101) 98 05/10/19 00:00 99.6 79 20 125/81 (96) 96 05/09/19 21:00 Room Air 05/09/19 20:00 99.7 83 20 116/66 (83) 96 05/09/19 16:00 98.2 89 18 136/79 (98) 99 05/09/19 12:00 98.2 84 15 120/80 (93) 97 Intake and Output 05/09/19 05/10/19 18:59 06:59 Intake Total 1100 ml 880 ml Output Total 500 ml 900 ml Balance 600 ml -20 ml Intake Oral 500 ml IV Total 600 ml 880 ml Output Urine Total 500 ml 900 ml # Voids 1 Laboratory Tests 05/10/19 06:00: White Blood Count 7.3, Red Blood Count 3.70L, Hemoglobin 10.0L, Hematocrit 31.2L , Mean Corpuscular Volume 84, Mean Corpuscular Hemoglobin 27.0, Mean Corpuscular Hemoglobin Concent 31.9L, Red Cell Distribution Width 14.6, Platelet Count 276, Mean Platelet Volume 4.7L, Neutrophils (%) (Auto) 60.1, Lymphocytes (%) (Auto) 27.5, Monocytes (%) (Auto) 9.3, Eosinophils (%) (Auto) 1.9, Basophils (%) (Auto) 1.1, Sodium Level 138, Potassium Level 5.2H, Chloride Level 107, Carbon Dioxide Level 26, Anion Gap 5, Blood Urea Nitrogen 29H, Creatinine 1.1, Estimat Glomerular Filtration Rate , Glucose Level 95, Calcium Level 9.5, Troponin I 0.000 Height (Feet): 5 Height (Inches): 7.00 Weight (Pounds): 107 Tim Godinez MD May 10, 2019 10:43
[2019-05-10] MEDS: HYDROcodone/Acetamin 5/325 tab ORAL PRN (10:58)
--- NOTE | 2019-05-10 11:32 | NUR ---
*-* INSURANCE *--* ALL CLINICALS AND REVIEWS HAVE BEEN FAXED TO: [facility] No tracking# yet CM: [facility]#[phone] fax#[phone]
[2019-05-10 12:00] VITALS: BP 131/85
--- NOTE | 2019-05-10 14:32 | Infectious Diseases Prog Note ---
Assessment/Plan Problems: (1) Catheter-associated urinary tract infection Assessment & Plan: present on admission, with culture is growing gram negative rods, continue ceftriaxone and change mcclendon catheter if not done yet (2) Lung nodule seen on imaging study Assessment & Plan: in the RUL , rule out mets from prostate CA, pulmonary is following , oncology eval is in progress (3) C7 spinal cord injury Assessment & Plan: recommend spine ortho eval , and pain management (4) Neck pain Assessment & Plan: due to the above , continue pain meds as per primary (5) Prostate CA Assessment & Plan: with RUL lung nodule, rule out mets, recommend oncology eval Subjective Constitutional: Reports: no symptoms HEENT: Reports: other - neck pain and restricted ROM Respiratory: Reports: no symptoms Breasts: Reports: no symptoms Cardiovascular: Reports: no symptoms Gastrointestinal/Abdominal: Reports: no symptoms Genitourinary: Reports: no symptoms Neurologic: Reports: weakness Psychiatric: Reports: no symptoms Skin: Reports: ulcer Endocrine: Reports: no symptoms Hematologic: Reports: no symptoms Musculoskeletal: Reports: pain Allergies: Coded Allergies: No Known Allergies (Unverified , 05/08/19) Objective Vital Signs Last 24 Hour Vital Signs Date Time Temp Pulse Resp B/P (MAP) Pulse Ox O2 Delivery O2 Flow Rate FiO2 05/10/19 12:00 98.2 84 14 131/85 (100) 97 05/10/19 09:00 Room Air 05/10/19 08:00 96.6 82 16 118/76 (90) 95 05/10/19 05:43 99.4 05/10/19 04:00 97.9 70 18 129/87 (101) 98 05/10/19 00:00 99.6 79 20 125/81 (96) 96 05/09/19 21:00 Room Air 05/09/19 20:00 99.7 83 20 116/66 (83) 96 05/09/19 16:00 98.2 89 18 136/79 (98) 99 Height (Feet): 5 Height (Inches): 7.00 Weight (Pounds): 107 General Appearance: no acute distress, cachetic HEENT: normocephalic, atraumatic, anicteric, mucous membranes moist, PERRL Respiratory/Chest: chest wall non-tender, lungs clear, normal breath sounds, no respiratory distress, no accessory muscle use Cardiovascular: normal peripheral pulses, normal rate, regular rhythm, no gallop/murmur, no JVD Abdomen: normal bowel sounds, soft, non tender, no organomegaly, non distended , no mass, no scars Extremities: no cyanosis, no clubbing Skin: no rash, no lesions, no ulcers Neurologic/Psychiatric: alert, responsive Lymphatic: no neck adenopathy, no groin adenopathy Musculoskeletal: normal muscle bulk, no effusion Microbiology Date/Time Source Procedure Growth Status 05/08/19 22:24 Urine,Clean Catch Urine Culture - Preliminary Gram Negative Henry Resulted Laboratory Tests Test 05/10/19 06:00 White Blood Count 7.3 K/UL (4.8-10.8) Red Blood Count 3.70 M/UL (4.70-6.10) L Hemoglobin 10.0 G/DL (14.2-18.0) L Hematocrit 31.2 % (42.0-52.0) L Mean Corpuscular Volume 84 FL (80-99) Mean Corpuscular Hemoglobin 27.0 PG (27.0-31.0) Mean Corpuscular Hemoglobin Concent 31.9 G/DL (32.0-36.0) L Red Cell Distribution Width 14.6 % (11.6-14.8) Platelet Count 276 K/UL (150-450) Mean Platelet Volume 4.7 FL (6.5-10.1) L Neutrophils (%) (Auto) 60.1 % (45.0-75.0) Lymphocytes (%) (Auto) 27.5 % (20.0-45.0) Monocytes (%) (Auto) 9.3 % (1.0-10.0) Eosinophils (%) (Auto) 1.9 % (0.0-3.0) Basophils (%) (Auto) 1.1 % (0.0-2.0) Sodium Level 138 MMOL/L (136-145) Potassium Level 5.2 MMOL/L (3.5-5.1) H Chloride Level 107 MMOL/L (98-107) Carbon Dioxide Level 26 MMOL/L (21-32) Anion Gap 5 mmol/L (5-15) Blood Urea Nitrogen 29 mg/dL (7-18) H Creatinine 1.1 MG/DL (0.55-1.30) Estimat Glomerular Filtration Rate mL/min (>60) Glucose Level 95 MG/DL (74-106) Calcium Level 9.5 MG/DL (8.5-10.1) Troponin I 0.000 ng/mL (0.000-0.056) Current Medications Medications (Trade) Dose Ordered Sig/Omar Route PRN Reason Start Time Stop Time Status Last Admin Dose Admin Acetaminophen (Tylenol) 650 mg Q4H PRN ORAL Mild Pain (Pain Scale 1-3) 05/08/19 23:15 06/07/19 23:14 Acetaminophen/ Hydrocodone Bitart ([place] 5/325) 1 tab Q6H PRN ORAL Moderate Pain (4-6) 05/09/19 19:45 05/16/19 19:44 05/10/19 10:58 Albuterol/ Ipratropium (Albuterol/ Ipratropium) 3 ml Q4H PRN HHN Shortness of Breath 05/08/19 23:15 05/13/19 23:14 Ceftriaxone Sodium 2 gm/ Dextrose 55 ml @ 110 mls/hr Q24H IVPB 05/09/19 22:00 05/16/19 21:59 05/09/19 21:57 Dextrose (Dextrose 50%) 25 ml Q30M PRN IV Hypoglycemia 05/08/19 23:15 06/07/19 23:14 Dextrose (Dextrose 50%) 50 ml Q30M PRN IV Hypoglycemia 05/08/19 23:15 06/07/19 23:14 Enoxaparin Sodium (Lovenox) 40 mg Q24H SUBQ 05/09/19 06:00 06/08/19 05:59 05/10/19 05:31 Morphine Sulfate (Morphine Sulfate) 2 mg Q6H PRN IVP Severe Pain (7-10) 05/09/19 19:45 05/16/19 19:44 05/10/19 09:00 Pantoprazole (Protonix) 40 mg DAILY ORAL 05/09/19 09:00 06/08/19 08:59 05/10/19 08:59 Sodium Chloride 1,000 ml @ 75 mls/hr [id number] IV 05/09/19 08:00 06/08/19 07:59 05/10/19 06:45 Raya Grigsby M.D. May 10, 2019 14:32
--- NOTE | 2019-05-10 15:08 | NUR ---
NURSE NOTES:WOUND CARE NOTES: Pt presented on admission with contractures , Multiple abrasions from fall at [facility]. Pt noted to have two abrasions in close proximity to R clavicle. Both wounds are moist with small amt biofilm. No exudate noted.Abrasion T r elbow . base of wound is pink and dry. dry scab noted to R knee. Pt is emaciated. Non-blanching erythema without induration noted to Sacrum and Bilat ischial tuberosities. Pt denied tenderness when each affected area palpated. R and L heels are blanchable . NO other skin concerns noted. Pt has been educated of potential risks for skin breakdown as pt can be resistive to being repositioned and personal care. Pt encouraged to comply with repositioning and to allowing staff to perform skin care when soiled. Pt verbalized recently having pressure injury on buttocks and was informed risks is greater due to pt recently having pressure injuries, and also due to contractures. Tx.plan: Apply Moisture Barrier paste to Sacrum,R and L buttocks. Cover each area with Optifoam drsg. Change every 3 Days and prn. Apply Cavilon Skin Barrier to R and L hips. Cover each hip with Optifoam drsg. Change every 7 days and prn. Apply Cavilon Skin Barrier to both heels. Cover each heel with Optifoam drsg. Change every 7 days and prn. Cleanse abrasions R shoulder with saline. Apply Silvaosrb Gel. Cover with Optifoam drsg. Change every 7 days and prn. Reposition at least every 2hours or as tolerated. Place pillow between knees. Off-load heels with pillow.
[2019-05-10 16:00] VITALS: BP 144/96
--- NOTE | 2019-05-10 17:03 | NUR ---
CASE MANAGEMENT:REVIEW 05/10/19 SI: DEHYDRATION. NECK PAIN 99.4 82 16 118/76 95% RA K+ 5.2; BUN 29; RBC 3.70; H/H10.0/31.2 IS: IV CEFTRIAXONE Q24 IV MS Q6/PRN NORCO PO Q6/PRN PROTONIX PO QD IVF NS @75/HR LOVENOX SQ Q24 :4E MED/SURG UNIT PLAN: WOUND CARE GI CONSULT PT TARA
--- NOTE | 2019-05-10 18:23 | NUR ---
NURSE NOTES: Dr. cornell ordered change mcclendon catheter for UTI. RN explained the procedure to the patient. patient refused to change f/c at this time. Patient requested to change only drainage bag. RN explained risks and benefits.
--- NOTE | 2019-05-10 19:00 | Consultation ---
DATE OF CONSULTATION: 05/09/2019 INFECTIOUS DISEASE CONSULTATION CONSULTING PHYSICIAN: Raya Grigsby M.D. REFERRING PHYSICIAN: Tim Godinez M.D. REASON FOR CONSULTATION: Catheter-associated urinary tract infection. Recommendation for antibiotics treatment. HISTORY OF PRESENT ILLNESS: The patient is a 74-year-old male with past medical history of prostate cancer with metastases, history of fall and cervical neck injury, presented to [facility] with increased neck pain as well as extremity weakness. The patient had prior history of spinal cord injury due to accident and he is normally wheelchair-bounded. The patient had a recent fall out of his wheelchair several weeks ago. He reported worsening pain to his neck and lower back and lower extremities. Workup in the emergency room showed temperature of 98.8 with blood pressure of 150/76. Urinalysis showed evidence of infection, so the patient was started on ceftriaxone by the admitting physician, and Infectious Disease consultation was requested for antibiotics treatment and further management. As per the patient report, his Lennon catheter has been there for more than a month and was never changed recently. REVIEW OF SYSTEMS: A 14-point of systems reviewed and they were all negative apart from the one I mentioned above in my H and P. PAST MEDICAL HISTORY: Significant for cervical neck injury, neck pain, prostate cancer, and status post fall. PAST SURGICAL HISTORY: Not on record. FAMILY HISTORY: Noncontributory. SOCIAL HISTORY: The patient lives in rehab. No recent drugs, tobacco, or alcohol. ALLERGIES: He has no known drug allergies. MEDICATIONS: The patient was started on ceftriaxone 2 g IV every 24 hours. For the rest of his medications, please refer to MAR. PHYSICAL EXAMINATION: VITAL SIGNS: Temperature 98.2, pulse 89, respirations 18, and blood pressure 136/79. Saturation 99% on room air. GENERAL: An elderly male, lying in bed, lethargic but responsive, not in acute distress. HEENT: Normocephalic and atraumatic. Pupils are reactive to light. Moist oral mucosa. No exudate or thrush. NECK: Supple. No lymphadenopathy. CARDIOVASCULAR: Regular rate and rhythm. No murmur or gallop. LUNGS: Clear bilaterally. Diminished breathing sounds at the bases. ABDOMEN: Soft, nontender, and nondistended. Normal bowel sounds. No hepatosplenomegaly or ascites. EXTREMITIES: No edema or cyanosis. Multiple wounds on his right anterior tibia, superficial, well granulated and some on his left leg. He also has right shoulder superficial wound. LABORATORY DATA: Labs showed white count of 8.6, hemoglobin 10.3, and platelet count 303,000. BUN 27 and creatinine 1.1. Urinalysis showed +2 leukocyte esterase, wbc's 15 to 20, and many bacteria in the urine. Microbiology - urine culture is growing gram-negative rods more than 100,000 colony. IMAGIN. Cervical spine CT, no contrast, showed no acute bony injury or trauma. Postsurgical changes. Extensive degenerative changes. 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 This may represent focus of neoplasm or scarring. 2. Chest x-ray showed right upper lobe opacity likely, but not definitively opacified. ASSESSMENT AND RECOMMENDATION: 1. Catheter-associated urinary tract infection, present on admission with cultures growing gram-negative rods. Continue ceftriaxone for now empiric coverage and change Lennon catheter if not done yet since it is old more than a month. 2. Lung nodule seen on imaging study in the right upper lobe, rule out metastases from prostate cancer. Pulmonary is following and Oncology. 3. C7 spinal cord injury. Recommend spine-ortho evaluation and pain management. 4. Neck pain due to the above. Continue pain management as per primary. 5. Prostate cancer with right upper lobe lung nodule, rule out metastases. Recommend Oncology evaluation and further follow up with Pulmonary. Thank you for the consult. ID will continue to follow. Raya Grigsby M.D. DR: MADISYN JOB#: [id number] CC:
--- NOTE | 2019-05-10 19:31 | NUR ---
HAND-OFF: Report given to [facility]CO Ontiveros.
--- NOTE | 2019-05-10 19:35 | NUR ---
NURSE NOTES: Received report from [facility]. Patient awake and verbally responsive to let his needs known. Patient is quadriplegic and unable to move due to intractable pain when moving. Will do the best to reposition the patient throughout the shift. Patient breathing unlabored without distress, discomfort, or sob on room air. Verbalized pain on the right side 03/18, will follow up with appropriate pain management. Informed about the mcclendon catheter change. Attempted and encouraged patient about the mcclendon catheter change and currently patient continues to refuse despite knowing the benefit and risk associated with the matter. Will attempt to encourage throughout the shift. Mcclendon catheter is intact draining urine. IV site noted on the left forearm intact and patent running fluid as ordered. Bed placed at the lowest with alarm, brake, and siderails up for safety. Call light placed within reach. Will continue to monitor and provide care as ordered.
[2019-05-10 20:00] VITALS: BP 113/71
--- NOTE | 2019-05-10 20:07 | Surgery Progress Note ---
Surgery Progress Note Subjective Additional Comments comfortable no complaints Objective Last 24 Hour Vital Signs Date Time Temp Pulse Resp B/P (MAP) Pulse Ox O2 Delivery O2 Flow Rate FiO2 05/10/19 16:00 98.3 69 19 144/96 (112) 99 05/10/19 12:00 98.2 84 14 131/85 (100) 97 05/10/19 09:00 Room Air 05/10/19 08:00 96.6 82 16 118/76 (90) 95 05/10/19 05:43 99.4 05/10/19 04:00 97.9 70 18 129/87 (101) 98 05/10/19 00:00 99.6 79 20 125/81 (96) 96 05/09/19 21:00 Room Air I&O Intake and Output 05/09/19 05/10/19 19:00 07:00 Intake Total 1175 ml 805 ml Output Total 500 ml 900 ml Balance 675 ml -95 ml Intake Oral 500 ml IV Total 675 ml 805 ml Output Urine Total 500 ml 900 ml # Voids 1 Cardiovascular: RSR Respiratory: clear Abdomen: soft, non-tender, present bowel sounds Extremities: no cyanosis, other Laboratory Tests Test 05/10/19 06:00 White Blood Count 7.3 K/UL (4.8-10.8) Red Blood Count 3.70 M/UL (4.70-6.10) L Hemoglobin 10.0 G/DL (14.2-18.0) L Hematocrit 31.2 % (42.0-52.0) L Mean Corpuscular Volume 84 FL (80-99) Mean Corpuscular Hemoglobin 27.0 PG (27.0-31.0) Mean Corpuscular Hemoglobin Concent 31.9 G/DL (32.0-36.0) L Red Cell Distribution Width 14.6 % (11.6-14.8) Platelet Count 276 K/UL (150-450) Mean Platelet Volume 4.7 FL (6.5-10.1) L Neutrophils (%) (Auto) 60.1 % (45.0-75.0) Lymphocytes (%) (Auto) 27.5 % (20.0-45.0) Monocytes (%) (Auto) 9.3 % (1.0-10.0) Eosinophils (%) (Auto) 1.9 % (0.0-3.0) Basophils (%) (Auto) 1.1 % (0.0-2.0) Sodium Level 138 MMOL/L (136-145) Potassium Level 5.2 MMOL/L (3.5-5.1) H Chloride Level 107 MMOL/L (98-107) Carbon Dioxide Level 26 MMOL/L (21-32) Anion Gap 5 mmol/L (5-15) Blood Urea Nitrogen 29 mg/dL (7-18) H Creatinine 1.1 MG/DL (0.55-1.30) Estimat Glomerular Filtration Rate mL/min (>60) Glucose Level 95 MG/DL (74-106) Calcium Level 9.5 MG/DL (8.5-10.1) Troponin I 0.000 ng/mL (0.000-0.056) Plan Problems: (1) Trauma (2) Neck pain Assessment & Plan: Findings: There is evidence of prior spinal decompression surgery, with laminotomy or laminectomy defects extending from C3 through T1. There is ankylosis of the C4-5 disc, presumably postsurgical. No acute fractures. No dislocations. There is very slight cervicothoracic scoliotic deformity which may be an artifact of positioning. At C2-3, a large osteophyte and/or ossification of the posterior longitudinal ligament protrudes posteriorly, results in borderline narrowing of the spinal canal and may impinge slightly upon the left side of the anterior cord. The neural foramina are preserved. At C3-4, posterior osteophytes and posterior longitudinal ligament ossification there is spinal canal. However, there is a left-sided laminectomy defect decompresses the spinal canal. There is severe stenosis of the right neural foramen and near complete obliteration of the left neural foramen. At C4-5, no significant disc bulge or protrusion or spinal stenosis. There is severe neural foraminal stenosis bilaterally. At C5-6, no significant disc bulge or protrusion or spinal stenosis. There is severe bilateral neural foraminal stenosis. At C6-7, there is mild bilateral neural foraminal stenosis. No significant disc bulge or protrusion or spinal canal stenosis. At C7-T1, there is moderate to severe bilateral neural foraminal stenosis. No significant disc bulge or protrusion or spinal stenosis. Lung apices demonstrate fibrotic changes and bullous changes. There is a 1.7 cm diameter masslike opacity at the right lung apex. 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 This may represent a focus of neoplasm or scarring. Consider dedicated chest CT for further evaluation Impression: Right upper lobe opacities, likely but not definitively calcified. Note that the apical nodules were described on recent cervical spine CT. No acute process otherwise Recommend dedicated chest CT for better characterization (3) Fall (4) Open wound Assessment & Plan: Pt presented on admission with contractures , Multiple [facility]. Pt noted to have two abrasions in close proximity to R clavicle. Both wounds are moist with small amt biofilm. No exudate noted.Abrasion T r elbow . base of wound is pink and dry. dry scab noted to R knee. Pt is emaciated. Non-blanching erythema without induration noted to Sacrum and Bilat ischial tuberosities. Pt denied tenderness when each affected area palpated. R and L heels are blanchable . NO other skin concerns noted. Pt has been educated of potential risks for skin breakdown as pt can be resistive to being repositioned and personal care. Pt encouraged to comply with repositioning and to allowing staff to perform skin care when soiled. Pt verbalized recently having pressure injury on buttocks and was informed risks is greater due to pt recently having pressure injuries, and also due to contractures. Tx.plan: Apply Moisture Barrier paste to Sacrum,R and L buttocks. Cover each area with Optifoam drsg. Change every 3 Days and prn. Apply Cavilon Skin Barrier to R and L hips. Cover each hip with Optifoam drsg. Change every 7 days and prn. Apply Cavilon Skin Barrier to both heels. Cover each heel with Optifoam drsg. Change every 7 days and prn. Cleanse abrasions R shoulder with saline. Apply Silvaosrb Gel. Cover with Optifoam drsg. Change every 7 days and prn. Reposition at least every 2hours or as tolerated. Place pillow between knees. Off-load heels with pillow. Pablito Lamas May 10, 2019 20:06
[2019-05-10] MEDS: cefTRIAXone 2 GM in D5W 55 ML IVPB SCH (22:47)
--- NOTE | 2019-05-10 22:50 | NUR ---
NURSE NOTES: Offered and encouraged mcclendon catheter change, but patient continues to refuse at this time. Will attempt again.
[2019-05-11] VITALS: BP 129/85
--- NOTE | 2019-05-11 01:04 | NUR ---
NURSE NOTES: Reached Dr. Grigsby to inform about patient positive for MRSA Nares. Was not able to reach Dr. Grigsby at this time. Left a message. Will follow up. Patient will be relocated to room 421-2.
--- NOTE | 2019-05-11 02:00 | NUR ---
NURSE NOTES: Patient woke up for pain medication. Offered and encouraged mcclendon catheter change, but patient continued to refuse at this time. Offered to take a look at wound care dressing and perform dressing changes as needed, but patient refused at this time. Will continue to monitor and attempt again.
[2019-05-11] MEDS: HYDROcodone/Acetamin 5/325 tab ORAL PRN ×2 (02:01→08:51)
--- NOTE | 2019-05-11 02:40 | NUR ---
NURSE NOTES: Received call again from Microbiology saying patient is positive for ESBL urine. Reached Dr. Grigsby to inform. Was not able to reach Dr. Grigsby at this time. Left a message. Will follow up.
[2019-05-11 04:00] VITALS: BP 129/78
--- NOTE | 2019-05-11 04:10 | NUR ---
NURSE NOTES: Offered changing mcclendon catheter and changing dressings if necessary, patient refused. Patient verbalized understanding the benefit of changing the mcclendon catheter and risk of not changing. Continues to refuse. Will continue to monitor.
--- NOTE | 2019-05-11 05:22 | NUR ---
NURSE NOTES: Patient allowed replacing mcclendon catheter. Previous mcclendon removed and 18Fr inserted with sterile technique. Patient explained procedure prior and during. Patient verbalized understanding. Patient tolerated the procedure well. Mcclendon in and draining urine.
[2019-05-11] MEDS: Enoxaparin 40mg Inj SUBQ SCH (05:39)
[2019-05-11 06:41] LABS: ANION GAP 7 mmol/L (5-15); BLOOD UREA NITROGEN 27 mg/dL (7-18); CALCIUM 9.2 MG/DL (8.5-10.1); CARBON DIOXIDE 25 MMOL/L (21-32); CHLORIDE 108 MMOL/L (98-107); POTASSIUM 4.8 MMOL/L (3.5-5.1); SODIUM 140 MMOL/L (136-145)
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
[2019-05-11 06:46] LABS: BASOPHILS % (AUTO) 1.3 % (0.0-2.0); EOSINOPHILS % (AUTO) 2.1 % (0.0-3.0); HEMATOCRIT 29.9 % (42.0-52.0); HEMOGLOBIN 9.5 G/DL (14.2-18.0); MEAN CORPUSCULAR VOLUME 84 FL (80-99); MONOCYTES % (AUTO) 8.9 % (1.0-10.0); NEUTROPHILS % (AUTO) 61.6 % (45.0-75.0); PLATELET COUNT 276 K/UL (150-450); RED BLOOD COUNT 3.54 M/UL (4.70-6.10); RED CELL DISTRIBUTION WIDTH 14.7 % (11.6-14.8); WHITE BLOOD COUNT 7.5 K/UL (4.8-10.8)
--- NOTE | 2019-05-11 07:21 | NUR ---
HAND-OFF: Report given to [facility].
[2019-05-11 08:00] VITALS: BP 137/72
--- NOTE | 2019-05-11 09:02 | General Progress Note ---
Assessment/Plan Assessment/Plan: (1) Cervicalgia (2) Cervical Spinal Stenosis (3) Cervical Spondylosis (4) Cervical Radiculopathy (5) H/O Cervical surgery Patient to be continued on Morphine and norco D/w Dr. Kelly and he concurred. Subjective Date patient seen: May 11, 2019 Time patient seen: 08:30 - am Allergies: Coded Allergies: No Known Allergies (Unverified , 05/08/19) Subjective REVIEW OF SYSTEMS: Denies rash, fever, chills, sweating, dizziness, drowsiness, blurred vision, sore throat, change in weight. No shortness of breath or chest pain. No nausea, vomiting, or blood in the stool or urine. No bowel or bladder incontinence. No dysuria. He complains of generalized body pain. SUBJECTIVE: Patient is in bed and reports that his pain has been reducing and is feeling moderate pain at this time tolerated on the Morphine and [place]. He has no new complaints at this time. Objective Last 24 Hour Vital Signs Date Time Temp Pulse Resp B/P (MAP) Pulse Ox O2 Delivery O2 Flow Rate FiO2 05/11/19 05:25 Room Air 05/11/19 05:15 Room Air 05/11/19 04:00 98.9 80 19 129/78 (95) 95 05/11/19 00:00 99.0 82 20 129/85 (100) 96 05/10/19 21:00 Room Air 05/10/19 20:00 99.5 88 19 113/71 (85) 96 05/10/19 16:00 98.3 69 19 144/96 (112) 99 05/10/19 12:00 98.2 84 14 131/85 (100) 97 Intake and Output 05/10/19 05/11/19 19:00 07:00 Intake Total 1815 ml 1795 ml Output Total 225 ml 1200 ml Balance 1590 ml 595 ml Intake Oral 150 ml 150 ml IV Total 825 ml 805 ml Other 840 ml 840 ml Output Urine Total 225 ml 1200 ml # Voids 1 Laboratory Tests 05/11/19 05:55: White Blood Count 7.5, Red Blood Count 3.54L, Hemoglobin 9.5L, Hematocrit 29.9L , Mean Corpuscular Volume 84, Mean Corpuscular Hemoglobin 27.0, Mean Corpuscular Hemoglobin Concent 32.0, Red Cell Distribution Width 14.7, Platelet Count 276, Mean Platelet Volume 5.1L, Neutrophils (%) (Auto) 61.6, Lymphocytes ( %) (Auto) 26.0, Monocytes (%) (Auto) 8.9, Eosinophils (%) (Auto) 2.1, Basophils (%) (Auto) 1.3, Sodium Level 140, Potassium Level 4.8, Chloride Level 108H, Carbon Dioxide Level 25, Anion Gap 7, Blood Urea Nitrogen 27H, Creatinine 1.0, Estimat Glomerular Filtration Rate , Glucose Level 90, Calcium Level 9.2 Height (Feet): 5 Height (Inches): 7.00 Weight (Pounds): 107 Objective GENERAL: Alert, awake, and oriented. LUNGS: Decreased breath sounds bilaterally. HEART: S1 and S2, regular. ABDOMEN: Soft, nontender, scars noted. EXTREMITIES: No cyanosis. No clubbing. NEURO: No changes. Fernando Acosta May 11, 2019 09:02
--- NOTE | 2019-05-11 09:30 | Nephrology Progress Note ---
Assessment/Plan Assessment/Plan: A/P 1. ANTHONY- Resolved. 2. Dehydration. Resolved 3. UTI. Rocephin. 4. Status post fall, spinal cord injury. Defer management to primary care physician. 5. Mild Hyperk+. Resolved Subjective Date patient seen: May 11, 2019 Time patient seen: 09:28 ROS Limited/Unobtainable: No Allergies: Coded Allergies: No Known Allergies (Unverified , 05/08/19) Subjective Patient in no overt distress Objective Last 24 Hour Vital Signs Date Time Temp Pulse Resp B/P (MAP) Pulse Ox O2 Delivery O2 Flow Rate FiO2 05/11/19 09:21 98.9 05/11/19 09:00 Room Air 05/11/19 08:00 98.2 77 20 137/72 (93) 96 05/11/19 05:25 Room Air 05/11/19 05:15 Room Air 05/11/19 04:00 98.9 80 19 129/78 (95) 95 05/11/19 00:00 99.0 82 20 129/85 (100) 96 05/10/19 21:00 Room Air 05/10/19 20:00 99.5 88 19 113/71 (85) 96 05/10/19 16:00 98.3 69 19 144/96 (112) 99 05/10/19 12:00 98.2 84 14 131/85 (100) 97 Intake and Output 05/10/19 05/11/19 19:00 07:00 Intake Total 1815 ml 1795 ml Output Total 225 ml 1200 ml Balance 1590 ml 595 ml Intake Oral 150 ml 150 ml IV Total 825 ml 805 ml Other 840 ml 840 ml Output Urine Total 225 ml 1200 ml # Voids 1 Laboratory Tests 05/11/19 05:55: White Blood Count 7.5, Red Blood Count 3.54L, Hemoglobin 9.5L, Hematocrit 29.9L , Mean Corpuscular Volume 84, Mean Corpuscular Hemoglobin 27.0, Mean Corpuscular Hemoglobin Concent 32.0, Red Cell Distribution Width 14.7, Platelet Count 276, Mean Platelet Volume 5.1L, Neutrophils (%) (Auto) 61.6, Lymphocytes ( %) (Auto) 26.0, Monocytes (%) (Auto) 8.9, Eosinophils (%) (Auto) 2.1, Basophils (%) (Auto) 1.3, Sodium Level 140, Potassium Level 4.8, Chloride Level 108H, Carbon Dioxide Level 25, Anion Gap 7, Blood Urea Nitrogen 27H, Creatinine 1.0, Estimat Glomerular Filtration Rate , Glucose Level 90, Calcium Level 9.2 Height (Feet): 5 Height (Inches): 7.00 Weight (Pounds): 107 General Appearance: no apparent distress, alert EENT: normal ENT inspection Neck: normal alignment, supple Cardiovascular: normal rate, regular rhythm Respiratory/Chest: lungs clear, normal breath sounds Abdomen: non tender, soft Edema: no edema noted Arm (L), no edema noted Arm (R), no edema noted Leg (L), no edema noted Leg (R), no edema noted Pedal (L), no edema noted Pedal (R), no edema noted Generalized Richard Tena MD May 11, 2019 09:30
--- NOTE | 2019-05-11 09:34 | Pulmonology Progress Note ---
Assessment/Plan Assessment/Plan IMPRESSION: 1. No active pulmonary issues. 2. Neck pain. 3. C7 cord injury. 4. Prostate CA. 5. Azotemia. DISCUSSION: Agree with present management and care. I will see as needed. Thank you for the consultation. Subjective Interval Events: None new Constitutional: Reports: no symptoms HEENT: Repors: no symptoms Respiratory: Reports: no symptoms Cardiovascular: Reports: no symptoms Gastrointestinal/Abdominal: Reports: no symptoms Allergies: Coded Allergies: No Known Allergies (Unverified , 05/08/19) Objective Last 24 Hour Vital Signs Date Time Temp Pulse Resp B/P (MAP) Pulse Ox O2 Delivery O2 Flow Rate FiO2 05/11/19 09:21 98.9 05/11/19 09:00 Room Air 05/11/19 08:00 98.2 77 20 137/72 (93) 96 05/11/19 05:25 Room Air 05/11/19 05:15 Room Air 05/11/19 04:00 98.9 80 19 129/78 (95) 95 05/11/19 00:00 99.0 82 20 129/85 (100) 96 05/10/19 21:00 Room Air 05/10/19 20:00 99.5 88 19 113/71 (85) 96 05/10/19 16:00 98.3 69 19 144/96 (112) 99 05/10/19 12:00 98.2 84 14 131/85 (100) 97 Intake and Output 05/10/19 05/11/19 18:59 06:59 Intake Total 1815 ml 1795 ml Output Total 225 ml 1200 ml Balance 1590 ml 595 ml Intake Oral 150 ml 150 ml IV Total 825 ml 805 ml Other 840 ml 840 ml Output Urine Total 225 ml 1200 ml # Voids 1 General Appearance: no acute distress HEENT: normocephalic Respiratory/Chest: chest wall non-tender Cardiovascular: normal peripheral pulses, normal rate Abdomen: soft, non tender Microbiology Date/Time Source Procedure Growth Status 05/08/19 21:21 Nasal Nares MRSA Culture - Final Staphylococcus Aureus - Mrsa Complete 05/08/19 22:24 Urine,Clean Catch Urine Culture - Final Escherichia Coli - Esbl Klebsiella Pneumoniae Esbl Complete Laboratory Tests 05/11/19 05:55: White Blood Count 7.5, Red Blood Count 3.54L, Hemoglobin 9.5L, Hematocrit 29.9L , Mean Corpuscular Volume 84, Mean Corpuscular Hemoglobin 27.0, Mean Corpuscular Hemoglobin Concent 32.0, Red Cell Distribution Width 14.7, Platelet Count 276, Mean Platelet Volume 5.1L, Neutrophils (%) (Auto) 61.6, Lymphocytes ( %) (Auto) 26.0, Monocytes (%) (Auto) 8.9, Eosinophils (%) (Auto) 2.1, Basophils (%) (Auto) 1.3, Sodium Level 140, Potassium Level 4.8, Chloride Level 108H, Carbon Dioxide Level 25, Anion Gap 7, Blood Urea Nitrogen 27H, Creatinine 1.0, Estimat Glomerular Filtration Rate , Glucose Level 90, Calcium Level 9.2 Current Medications Medications (Trade) Dose Ordered Sig/Omar Route PRN Reason Start Time Stop Time Status Last Admin Dose Admin Acetaminophen (Tylenol) 650 mg Q4H PRN ORAL Mild Pain (Pain Scale 1-3) 05/08/19 23:15 06/07/19 23:14 Acetaminophen/ Hydrocodone Bitart ([place] 5/325) 1 tab Q6H PRN ORAL Moderate Pain (4-6) 05/09/19 19:45 05/16/19 19:44 05/11/19 08:51 Albuterol/ Ipratropium (Albuterol/ Ipratropium) 3 ml Q4H PRN HHN Shortness of Breath 05/08/19 23:15 05/13/19 23:14 Dextrose (Dextrose 50%) 25 ml Q30M PRN IV Hypoglycemia 05/08/19 23:15 06/07/19 23:14 Dextrose (Dextrose 50%) 50 ml Q30M PRN IV Hypoglycemia 05/08/19 23:15 06/07/19 23:14 Enoxaparin Sodium (Lovenox) 40 mg Q24H SUBQ 05/09/19 06:00 06/08/19 05:59 05/11/19 05:39 Ertapenem 1 gm/ Sodium Chloride 55 ml @ 110 mls/hr Q24H IVPB 05/11/19 10:00 05/16/19 09:59 Morphine Sulfate (Morphine Sulfate) 2 mg Q6H PRN IVP Severe Pain (7-10) 05/09/19 19:45 05/16/19 19:44 05/10/19 21:04 Pantoprazole (Protonix) 40 mg DAILY ORAL 05/09/19 09:00 06/08/19 08:59 05/10/19 08:59 Sodium Chloride 1,000 ml @ 75 mls/hr [id number] IV 05/09/19 08:00 06/08/19 07:59 05/10/19 21:04 Flaquito Jewell MD May 11, 2019 09:34
--- NOTE | 2019-05-11 09:49 | General Progress Note ---
Assessment/Plan Assessment/Plan: S: My pain is better O: bed bound, relatively controlled pain. No Cp or sob PHYSICAL EXAMINATION:HEAD AND NECK: Atraumatic and normocephalic. CHEST: Clear to auscultation. No wheezing.ABDOMEN: Soft. No organomegaly. MUSCULOSKELETAL: Positive for quadriparesis, paraplegia, NEUROLOGY: The patient is awake, alert, oriented x3. LABORATORY DATA: Labs dated May 09 IMAGING: CXR ASSESSMENT: 1. Acute on chronic pain. 2. Quadriparesis and cervical injuries. 3. UTI.Mixed, 4. Pain management. 5. Bedridden and quadriplegic. 6. GI and DVT prophylaxis. 7. Neurogenic bladder. 8. Prostate CA Plan: Pain management Optimse pain meds Culture targeted Abx treatment Subjective Allergies: Coded Allergies: No Known Allergies (Unverified , 05/08/19) Objective Last 24 Hour Vital Signs Date Time Temp Pulse Resp B/P (MAP) Pulse Ox O2 Delivery O2 Flow Rate FiO2 05/11/19 09:21 98.9 05/11/19 09:00 Room Air 05/11/19 08:00 98.2 77 20 137/72 (93) 96 05/11/19 05:25 Room Air 05/11/19 05:15 Room Air 05/11/19 04:00 98.9 80 19 129/78 (95) 95 05/11/19 00:00 99.0 82 20 129/85 (100) 96 05/10/19 21:00 Room Air 05/10/19 20:00 99.5 88 19 113/71 (85) 96 05/10/19 16:00 98.3 69 19 144/96 (112) 99 05/10/19 12:00 98.2 84 14 131/85 (100) 97 Intake and Output 05/10/19 05/11/19 18:59 06:59 Intake Total 1815 ml 1795 ml Output Total 225 ml 1200 ml Balance 1590 ml 595 ml Intake Oral 150 ml 150 ml IV Total 825 ml 805 ml Other 840 ml 840 ml Output Urine Total 225 ml 1200 ml # Voids 1 Laboratory Tests 05/11/19 05:55: White Blood Count 7.5, Red Blood Count 3.54L, Hemoglobin 9.5L, Hematocrit 29.9L , Mean Corpuscular Volume 84, Mean Corpuscular Hemoglobin 27.0, Mean Corpuscular Hemoglobin Concent 32.0, Red Cell Distribution Width 14.7, Platelet Count 276, Mean Platelet Volume 5.1L, Neutrophils (%) (Auto) 61.6, Lymphocytes ( %) (Auto) 26.0, Monocytes (%) (Auto) 8.9, Eosinophils (%) (Auto) 2.1, Basophils (%) (Auto) 1.3, Sodium Level 140, Potassium Level 4.8, Chloride Level 108H, Carbon Dioxide Level 25, Anion Gap 7, Blood Urea Nitrogen 27H, Creatinine 1.0, Estimat Glomerular Filtration Rate , Glucose Level 90, Calcium Level 9.2 Height (Feet): 5 Height (Inches): 7.00 Weight (Pounds): 107 Tim Godinez MD May 11, 2019 09:49
[2019-05-11] MEDS: Ertapenem 1 GM in NS 55 ML IVPB SCH (10:06)
[2019-05-11] MEDS: Morphine Sulfate 2mg/ml Inj(IV/IM USE ONLY) IVP PRN ×2 (10:06→19:54)
[2019-05-11 12:00] VITALS: BP 137/72
--- NOTE | 2019-05-11 13:22 | NUR ---
CASE MANAGEMENT:REVIEW 05/10/19 SI: NECK PAIN, UTI 98.2 77 20 137/72 96% RA BUN 27; RBC 3.54; H/H 9.5/29.9 IS: IV ERTAPENEM Q24 IV MS Q6/PRN NORCO PO Q6/PRN PROTONIX PO QD IVF NS @75/HR LOVENOX SQ Q24 :4E MED/SURG UNIT PLAN: MRI CERVICAL SPINE RECOM SPINAL SURGEON Addendum: 05/11/19 at 1339 by OMAR CASTRO LVN CASE MANAGEMENT:REVIEW 05/11/19 SI: NECK PAIN, UTI 98.2 77 20 137/72 96% RA BUN 27; RBC 3.54; H/H 9.5/29.9 IS: IV ERTAPENEM Q24 IV MS Q6/PRN NORCO PO Q6/PRN PROTONIX PO QD IVF NS @75/HR LOVENOX SQ Q24 :4E MED/SURG UNIT PLAN: MRI CERVICAL SPINE RECOM SPINAL SURGEON
--- NOTE | 2019-05-11 13:45 | NUR ---
*-* INSURANCE *--* ALL CLINICALS AND REVIEWS HAVE BEEN FAXED TO: [facility] No tracking# yet CM: [facility]#[phone] fax#[phone]
[2019-05-11 16:00] VITALS: BP 136/86
--- NOTE | 2019-05-11 16:01 | Infectious Diseases Prog Note ---
Assessment/Plan Problems: (1) Catheter-associated urinary tract infection Assessment & Plan: present on admission, with culture is growing ESBL producing E coli and Klebsiella pneumonia , will switch ceftriaxone to ertapenem for 7 days , had his mcclendon catheter changed already (2) Lung nodule seen on imaging study Assessment & Plan: in the RUL , rule out mets from prostate CA, pulmonary is following , oncology eval is in progress (3) C7 spinal cord injury Assessment & Plan: recommend spine ortho eval , and pain management (4) Neck pain Assessment & Plan: due to the above , continue pain meds as per primary (5) Prostate CA Assessment & Plan: with RUL lung nodule, rule out mets, recommend oncology eval Subjective Constitutional: Reports: no symptoms HEENT: Reports: other - neck pain Respiratory: Reports: no symptoms Breasts: Reports: no symptoms Cardiovascular: Reports: no symptoms Gastrointestinal/Abdominal: Reports: no symptoms Genitourinary: Reports: no symptoms Neurologic: Reports: no symptoms Psychiatric: Reports: no symptoms Skin: Reports: no symptoms Endocrine: Reports: no symptoms Hematologic: Reports: no symptoms Musculoskeletal: Reports: pain Allergies: Coded Allergies: No Known Allergies (Unverified , 05/08/19) Objective Vital Signs Last 24 Hour Vital Signs Date Time Temp Pulse Resp B/P (MAP) Pulse Ox O2 Delivery O2 Flow Rate FiO2 05/11/19 12:00 97.6 70 20 137/72 (93) 97 05/11/19 10:36 98.9 05/11/19 09:21 98.9 05/11/19 09:00 Room Air 05/11/19 08:00 98.2 77 20 137/72 (93) 96 05/11/19 05:25 Room Air 05/11/19 05:15 Room Air 05/11/19 04:00 98.9 80 19 129/78 (95) 95 05/11/19 00:00 99.0 82 20 129/85 (100) 96 05/10/19 21:00 Room Air 05/10/19 20:00 99.5 88 19 113/71 (85) 96 05/10/19 16:00 98.3 69 19 144/96 (112) 99 Height (Feet): 5 Height (Inches): 7.00 Weight (Pounds): 107 General Appearance: WD/WN, no acute distress HEENT: normocephalic, atraumatic, anicteric, mucous membranes moist Respiratory/Chest: chest wall non-tender, lungs clear, normal breath sounds, no respiratory distress, no accessory muscle use, decreased breath sounds Cardiovascular: normal peripheral pulses, normal rate, regular rhythm, no gallop/murmur, no JVD Abdomen: normal bowel sounds, soft, non tender, no organomegaly, non distended , no mass, no scars Extremities: no cyanosis, no clubbing Skin: no rash, no lesions, no ulcers Neurologic/Psychiatric: alert, responsive Lymphatic: no neck adenopathy, no groin adenopathy Musculoskeletal: normal muscle bulk, no effusion Microbiology Date/Time Source Procedure Growth Status 05/08/19 21:21 Nasal Nares MRSA Culture - Final Staphylococcus Aureus - Mrsa Complete 05/08/19 22:24 Urine,Clean Catch Urine Culture - Final Escherichia Coli - Esbl Klebsiella Pneumoniae Esbl Complete Laboratory Tests Test 05/11/19 05:55 White Blood Count 7.5 K/UL (4.8-10.8) Red Blood Count 3.54 M/UL (4.70-6.10) L Hemoglobin 9.5 G/DL (14.2-18.0) L Hematocrit 29.9 % (42.0-52.0) L Mean Corpuscular Volume 84 FL (80-99) Mean Corpuscular Hemoglobin 27.0 PG (27.0-31.0) Mean Corpuscular Hemoglobin Concent 32.0 G/DL (32.0-36.0) Red Cell Distribution Width 14.7 % (11.6-14.8) Platelet Count 276 K/UL (150-450) Mean Platelet Volume 5.1 FL (6.5-10.1) L Neutrophils (%) (Auto) 61.6 % (45.0-75.0) Lymphocytes (%) (Auto) 26.0 % (20.0-45.0) Monocytes (%) (Auto) 8.9 % (1.0-10.0) Eosinophils (%) (Auto) 2.1 % (0.0-3.0) Basophils (%) (Auto) 1.3 % (0.0-2.0) Sodium Level 140 MMOL/L (136-145) Potassium Level 4.8 MMOL/L (3.5-5.1) Chloride Level 108 MMOL/L (98-107) H Carbon Dioxide Level 25 MMOL/L (21-32) Anion Gap 7 mmol/L (5-15) Blood Urea Nitrogen 27 mg/dL (7-18) H Creatinine 1.0 MG/DL (0.55-1.30) Estimat Glomerular Filtration Rate mL/min (>60) Glucose Level 90 MG/DL (74-106) Calcium Level 9.2 MG/DL (8.5-10.1) Current Medications Medications (Trade) Dose Ordered Sig/Omar Route PRN Reason Start Time Stop Time Status Last Admin Dose Admin Acetaminophen (Tylenol) 650 mg Q4H PRN ORAL Mild Pain (Pain Scale 1-3) 05/08/19 23:15 06/07/19 23:14 Acetaminophen/ Hydrocodone Bitart (Hankins 5/325) 1 tab Q6H PRN ORAL Moderate Pain (4-6) 05/09/19 19:45 05/16/19 19:44 05/11/19 08:51 Albuterol/ Ipratropium (Albuterol/ Ipratropium) 3 ml Q4H PRN HHN Shortness of Breath 05/08/19 23:15 05/13/19 23:14 Dextrose (Dextrose 50%) 25 ml Q30M PRN IV Hypoglycemia 05/08/19 23:15 06/07/19 23:14 Dextrose (Dextrose 50%) 50 ml Q30M PRN IV Hypoglycemia 05/08/19 23:15 06/07/19 23:14 Enoxaparin Sodium (Lovenox) 40 mg Q24H SUBQ 05/09/19 06:00 06/08/19 05:59 05/11/19 05:39 Ertapenem 1 gm/ Sodium Chloride 55 ml @ 110 mls/hr Q24H IVPB 05/11/19 10:00 05/16/19 09:59 05/11/19 10:06 Morphine Sulfate (Morphine Sulfate) 2 mg Q6H PRN IVP Severe Pain (7-10) 05/09/19 19:45 05/16/19 19:44 05/11/19 10:06 Pantoprazole (Protonix) 40 mg DAILY ORAL 05/09/19 09:00 06/08/19 08:59 05/10/19 08:59 Sodium Chloride 1,000 ml @ 75 mls/hr [id number] IV 05/09/19 08:00 06/08/19 07:59 05/11/19 13:39 Raya Grigsby M.D. May 11, 2019 16:01
--- NOTE | 2019-05-11 19:22 | NUR ---
HAND-OFF: Report given to FCO Diaz.
[2019-05-11] MEDS ORDERED: Fleet's Enema 133ml RECTAL SCH (19:28)
--- NOTE | 2019-05-11 19:35 | Surgery Progress Note ---
Surgery Progress Note Subjective Additional Comments comfortable micro noted exam stable Objective Last 24 Hour Vital Signs Date Time Temp Pulse Resp B/P (MAP) Pulse Ox O2 Delivery O2 Flow Rate FiO2 05/11/19 17:57 97.9 05/11/19 16:00 100.4 96 18 136/86 (103) 97 05/11/19 12:00 97.6 70 20 137/72 (93) 97 05/11/19 10:36 98.9 05/11/19 09:21 98.9 05/11/19 09:00 Room Air 05/11/19 08:00 98.2 77 20 137/72 (93) 96 05/11/19 05:25 Room Air 05/11/19 05:15 Room Air 05/11/19 04:00 98.9 80 19 129/78 (95) 95 05/11/19 00:00 99.0 82 20 129/85 (100) 96 05/10/19 21:00 Room Air 05/10/19 20:00 99.5 88 19 113/71 (85) 96 I&O Intake and Output 05/10/19 05/11/19 19:00 07:00 Intake Total 1815 ml 1795 ml Output Total 225 ml 1200 ml Balance 1590 ml 595 ml Intake Oral 150 ml 150 ml IV Total 825 ml 805 ml Other 840 ml 840 ml Output Urine Total 225 ml 1200 ml # Voids 1 Dressing: dry Wound: clean Cardiovascular: RSR Respiratory: clear Abdomen: soft, flat, non-tender, present bowel sounds Extremities: no cyanosis Laboratory Tests Test 05/11/19 05:55 White Blood Count 7.5 K/UL (4.8-10.8) Red Blood Count 3.54 M/UL (4.70-6.10) L Hemoglobin 9.5 G/DL (14.2-18.0) L Hematocrit 29.9 % (42.0-52.0) L Mean Corpuscular Volume 84 FL (80-99) Mean Corpuscular Hemoglobin 27.0 PG (27.0-31.0) Mean Corpuscular Hemoglobin Concent 32.0 G/DL (32.0-36.0) Red Cell Distribution Width 14.7 % (11.6-14.8) Platelet Count 276 K/UL (150-450) Mean Platelet Volume 5.1 FL (6.5-10.1) L Neutrophils (%) (Auto) 61.6 % (45.0-75.0) Lymphocytes (%) (Auto) 26.0 % (20.0-45.0) Monocytes (%) (Auto) 8.9 % (1.0-10.0) Eosinophils (%) (Auto) 2.1 % (0.0-3.0) Basophils (%) (Auto) 1.3 % (0.0-2.0) Sodium Level 140 MMOL/L (136-145) Potassium Level 4.8 MMOL/L (3.5-5.1) Chloride Level 108 MMOL/L (98-107) H Carbon Dioxide Level 25 MMOL/L (21-32) Anion Gap 7 mmol/L (5-15) Blood Urea Nitrogen 27 mg/dL (7-18) H Creatinine 1.0 MG/DL (0.55-1.30) Estimat Glomerular Filtration Rate mL/min (>60) Glucose Level 90 MG/DL (74-106) Calcium Level 9.2 MG/DL (8.5-10.1) Plan Problems: (1) Trauma (2) Neck pain Assessment & Plan: Findings: There is evidence of prior spinal decompression surgery, with laminotomy or laminectomy defects extending from C3 through T1. There is ankylosis of the C4-5 disc, presumably postsurgical. No acute fractures. No dislocations. There is very slight cervicothoracic scoliotic deformity which may be an artifact of positioning. At C2-3, a large osteophyte and/or ossification of the posterior longitudinal ligament protrudes posteriorly, results in borderline narrowing of the spinal canal and may impinge slightly upon the left side of the anterior cord. The neural foramina are preserved. At C3-4, posterior osteophytes and posterior longitudinal ligament ossification there is spinal canal. However, there is a left-sided laminectomy defect decompresses the spinal canal. There is severe stenosis of the right neural foramen and near complete obliteration of the left neural foramen. At C4-5, no significant disc bulge or protrusion or spinal stenosis. There is severe neural foraminal stenosis bilaterally. At C5-6, no significant disc bulge or protrusion or spinal stenosis. There is severe bilateral neural foraminal stenosis. At C6-7, there is mild bilateral neural foraminal stenosis. No significant disc bulge or protrusion or spinal canal stenosis. At C7-T1, there is moderate to severe bilateral neural foraminal stenosis. No significant disc bulge or protrusion or spinal stenosis. Lung apices demonstrate fibrotic changes and bullous changes. There is a 1.7 cm diameter masslike opacity at the right lung apex. 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 This may represent a focus of neoplasm or scarring. Consider dedicated chest CT for further evaluation Impression: Right upper lobe opacities, likely but not definitively calcified. Note that the apical nodules were described on recent cervical spine CT. No acute process otherwise Recommend dedicated chest CT for better characterization (3) Fall (4) Open wound Assessment & Plan: Pt presented on admission with contractures , [facility]. Pt noted to have two abrasions in close proximity to R clavicle. Both wounds are moist with small amt biofilm. No exudate noted.Abrasion T r elbow . base of wound is pink and dry. dry scab noted to R knee. Pt is emaciated. Non-blanching erythema without induration noted to Sacrum and Bilat ischial tuberosities. Pt denied tenderness when each affected area palpated. R and L heels are blanchable . NO other skin concerns noted. Pt has been educated of potential risks for skin breakdown as pt can be resistive to being repositioned and personal care. Pt encouraged to comply with repositioning and to allowing staff to perform skin care when soiled. Pt verbalized recently having pressure injury on buttocks and was informed risks is greater due to pt recently having pressure injuries, and also due to contractures. Tx.plan: Apply Moisture Barrier paste to Sacrum,R and L buttocks. Cover each area with Optifoam drsg. Change every 3 Days and prn. Apply Cavilon Skin Barrier to R and L hips. Cover each hip with Optifoam drsg. Change every 7 days and prn. Apply Cavilon Skin Barrier to both heels. Cover each heel with Optifoam drsg. Change every 7 days and prn. Cleanse abrasions R shoulder with saline. Apply Silvaosrb Gel. Cover with Optifoam drsg. Change every 7 days and prn. Reposition at least every 2hours or as tolerated. Place pillow between knees. Off-load heels with pillow. Pablito Lamas May 11, 2019 19:35
[2019-05-11 20:00] VITALS: BP 140/92
--- NOTE | 2019-05-11 21:00 | NUR ---
NURSE NOTES: RECEIVED PT FROM FCO AMARO. PT IS AWAKE, AAOX4, ON ROOM AIR, NO SOB. PT C/O 8/10 PAIN NECK, AND BACK. PRN MORPHINE GIVEN. WOUND DRESSINGS ARE INTACT AND DRY. ARAUJO CATH IN INTACT AND PATENT, DRAINING WELL. IV ON LEFT FA 20G IS INTACT AND PATENT. BED IS LOCKED AND LOW, BED ALARMS ACTIVE, SIDE RAILS UP X2, AND CALL LIGHT IS WITHIN REACH. WILL CONTINUE TO MONITOR.
[2019-05-12] VITALS: BP 130/81
[2019-05-12] MEDS: Morphine Sulfate 2mg/ml Inj(IV/IM USE ONLY) IVP PRN ×3 (02:13→16:04)
[2019-05-12 04:00] VITALS: BP 137/83
[2019-05-12] MEDS: Enoxaparin 40mg Inj SUBQ SCH (05:41)
--- NOTE | 2019-05-12 06:29 | NUR ---
NURSE NOTES: PT HAD A TEMP OF 100.4. REFUSED TYLENOL. COOLING METHOD IMPLEMENTED. TEMP WENT DOWN TO 99.7 THEN 97.7 UPON REASSESSMENT.
[2019-05-12 06:51] LABS: BASOPHILS % (AUTO) 0.6 % (0.0-2.0); EOSINOPHILS % (AUTO) 1.9 % (0.0-3.0); HEMATOCRIT 31.4 % (42.0-52.0); HEMOGLOBIN 10.2 G/DL (14.2-18.0); LYMPHOCYTES % (AUTO) 20.7 % (20.0-45.0); MEAN CORPUSCULAR VOLUME 84 FL (80-99); MONOCYTES % (AUTO) 6.2 % (1.0-10.0); NEUTROPHILS % (AUTO) 70.6 % (45.0-75.0); PLATELET COUNT 300 K/UL (150-450); RED BLOOD COUNT 3.74 M/UL (4.70-6.10); RED CELL DISTRIBUTION WIDTH 14.7 % (11.6-14.8); WHITE BLOOD COUNT 8.9 K/UL (4.8-10.8)
[2019-05-12 06:58] LABS: ANION GAP 4 mmol/L (5-15); BLOOD UREA NITROGEN 31 mg/dL (7-18); CALCIUM 9.4 MG/DL (8.5-10.1); CARBON DIOXIDE 29 MMOL/L (21-32); CHLORIDE 107 MMOL/L (98-107); CREATININE 0.9 MG/DL (0.55-1.30); POTASSIUM 4.9 MMOL/L (3.5-5.1); SODIUM 140 MMOL/L (136-145)
--- NOTE | 2019-05-12 07:50 | NUR ---
HAND-OFF: Report given to FCO Oropeza.
--- NOTE | 2019-05-12 07:58 | Nephrology Progress Note ---
Assessment/Plan Assessment/Plan: A/P 1. ANTHONY- Resolved. 2. Dehydration. Resolved 3. UTI. Rocephin. 4. Status post fall, spinal cord injury. Defer management to primary care physician. 5. Mild Hyperk+. Resolved DC IVFs. Will sign off today. Thank you for the kind consult Subjective Date patient seen: May 12, 2019 Time patient seen: 07:57 ROS Limited/Unobtainable: No Allergies: Coded Allergies: No Known Allergies (Unverified , 05/08/19) Subjective Patient in no overt distress. Eating well Objective Last 24 Hour Vital Signs Date Time Temp Pulse Resp B/P (MAP) Pulse Ox O2 Delivery O2 Flow Rate FiO2 05/12/19 04:00 97.7 83 18 137/83 (101) 97 05/12/19 00:00 99.7 80 20 130/81 (97) 97 05/11/19 21:00 Room Air 05/11/19 20:18 92 18 96 Room Air 21 05/11/19 20:00 100.4 86 18 140/92 (108) 97 05/11/19 17:57 97.9 05/11/19 16:00 100.4 96 18 136/86 (103) 97 05/11/19 12:00 97.6 70 20 137/72 (93) 97 05/11/19 10:36 98.9 05/11/19 09:21 98.9 05/11/19 09:00 Room Air 05/11/19 08:00 98.2 77 20 137/72 (93) 96 Intake and Output 05/11/19 05/12/19 19:00 07:00 Intake Total 1350 ml 750 ml Output Total 1400 ml 1000 ml Balance -50 ml -250 ml Intake Oral 1200 ml IV Total 150 ml 750 ml Output Urine Total 1400 ml 1000 ml # Bowel Movements 2 Laboratory Tests 05/12/19 05:23: White Blood Count 8.9, Red Blood Count 3.74L, Hemoglobin 10.2L, Hematocrit 31.4L , Mean Corpuscular Volume 84, Mean Corpuscular Hemoglobin 27.2, Mean Corpuscular Hemoglobin Concent 32.3, Red Cell Distribution Width 14.7, Platelet Count 300, Mean Platelet Volume 4.8L, Neutrophils (%) (Auto) 70.6, Lymphocytes ( %) (Auto) 20.7, Monocytes (%) (Auto) 6.2, Eosinophils (%) (Auto) 1.9, Basophils (%) (Auto) 0.6, Sodium Level 140, Potassium Level 4.9, Chloride Level 107, Carbon Dioxide Level 29, Anion Gap 4L, Blood Urea Nitrogen 31H, Creatinine 0.9, Estimat Glomerular Filtration Rate , Glucose Level 90, Calcium Level 9.4 Height (Feet): 5 Height (Inches): 7.00 Weight (Pounds): 107 General Appearance: no apparent distress, alert EENT: normal ENT inspection Neck: normal alignment, supple Cardiovascular: normal rate, regular rhythm Respiratory/Chest: lungs clear, normal breath sounds Abdomen: non tender, soft Edema: no edema noted Arm (L), no edema noted Arm (R), no edema noted Leg (L), no edema noted Leg (R), no edema noted Pedal (L), no edema noted Pedal (R), no edema noted Generalized Richard Tena MD May 12, 2019 07:58
[2019-05-12 08:00] VITALS: BP 120/70
--- NOTE | 2019-05-12 08:00 | NUR ---
Received report from Emily, RN. Pt is awake, alert, oriented. No apparent distress noted. On room air, IV intact. Bed locked in lowest position, side rails up, call light within reach.
--- NOTE | 2019-05-12 08:21 | Pulmonology Progress Note ---
Assessment/Plan Assessment/Plan IMPRESSION: 1. No active pulmonary issues. 2. Neck pain. 3. C7 cord injury. 4. Prostate CA. 5. Azotemia. DISCUSSION: Agree with present management and care. I will sign off. Thank you for the consultation. Subjective Interval Events: None new reported Constitutional: Reports: no symptoms HEENT: Repors: no symptoms Respiratory: Reports: no symptoms Cardiovascular: Reports: no symptoms Allergies: Coded Allergies: No Known Allergies (Unverified , 05/08/19) Objective Last 24 Hour Vital Signs Date Time Temp Pulse Resp B/P (MAP) Pulse Ox O2 Delivery O2 Flow Rate FiO2 05/12/19 07:45 76 20 96 Room Air 21 05/12/19 04:00 97.7 83 18 137/83 (101) 97 05/12/19 00:00 99.7 80 20 130/81 (97) 97 05/11/19 21:00 Room Air 05/11/19 20:18 92 18 96 Room Air 21 05/11/19 20:00 100.4 86 18 140/92 (108) 97 05/11/19 17:57 97.9 05/11/19 16:00 100.4 96 18 136/86 (103) 97 05/11/19 12:00 97.6 70 20 137/72 (93) 97 05/11/19 10:36 98.9 05/11/19 09:21 98.9 05/11/19 09:00 Room Air Intake and Output 05/11/19 05/12/19 19:00 07:00 Intake Total 1350 ml 750 ml Output Total 1400 ml 1000 ml Balance -50 ml -250 ml Intake Oral 1200 ml IV Total 150 ml 750 ml Output Urine Total 1400 ml 1000 ml # Bowel Movements 2 General Appearance: no acute distress HEENT: normocephalic Respiratory/Chest: chest wall non-tender, lungs clear Cardiovascular: normal peripheral pulses, normal rate Abdomen: soft, non tender Laboratory Tests 05/12/19 05:23: White Blood Count 8.9, Red Blood Count 3.74L, Hemoglobin 10.2L, Hematocrit 31.4L , Mean Corpuscular Volume 84, Mean Corpuscular Hemoglobin 27.2, Mean Corpuscular Hemoglobin Concent 32.3, Red Cell Distribution Width 14.7, Platelet Count 300, Mean Platelet Volume 4.8L, Neutrophils (%) (Auto) 70.6, Lymphocytes ( %) (Auto) 20.7, Monocytes (%) (Auto) 6.2, Eosinophils (%) (Auto) 1.9, Basophils (%) (Auto) 0.6, Sodium Level 140, Potassium Level 4.9, Chloride Level 107, Carbon Dioxide Level 29, Anion Gap 4L, Blood Urea Nitrogen 31H, Creatinine 0.9, Estimat Glomerular Filtration Rate , Glucose Level 90, Calcium Level 9.4 Current Medications Medications (Trade) Dose Ordered Sig/Omar Route PRN Reason Start Time Stop Time Status Last Admin Dose Admin Acetaminophen (Tylenol) 650 mg Q4H PRN ORAL Mild Pain (Pain Scale 1-3) 05/08/19 23:15 06/07/19 23:14 05/11/19 17:27 Acetaminophen/ Hydrocodone Bitart ([place] 5/325) 1 tab Q6H PRN ORAL Moderate Pain (4-6) 05/09/19 19:45 05/16/19 19:44 05/11/19 08:51 Albuterol/ Ipratropium (Albuterol/ Ipratropium) 3 ml Q4H PRN HHN Shortness of Breath 05/08/19 23:15 05/13/19 23:14 Dextrose (Dextrose 50%) 25 ml Q30M PRN IV Hypoglycemia 05/08/19 23:15 06/07/19 23:14 Dextrose (Dextrose 50%) 50 ml Q30M PRN IV Hypoglycemia 05/08/19 23:15 06/07/19 23:14 Enoxaparin Sodium (Lovenox) 40 mg Q24H SUBQ 05/09/19 06:00 06/08/19 05:59 05/11/19 05:39 Ertapenem 1 gm/ Sodium Chloride 55 ml @ 110 mls/hr Q24H IVPB 05/11/19 10:00 05/16/19 09:59 05/11/19 10:06 Morphine Sulfate (Morphine Sulfate) 2 mg Q6H PRN IVP Severe Pain (7-10) 05/09/19 19:45 05/16/19 19:44 05/12/19 02:13 Ondansetron HCl (Zofran) 4 mg Q6H PRN IVP Nausea & Vomiting 05/11/19 17:30 06/10/19 17:29 05/11/19 17:27 Pantoprazole (Protonix) 40 mg DAILY ORAL 05/09/19 09:00 06/08/19 08:59 05/10/19 08:59 Flaquito Jewell MD May 12, 2019 08:21
--- NOTE | 2019-05-12 08:47 | General Progress Note ---
Assessment/Plan Assessment/Plan: (1) Cervicalgia (2) Cervical Spinal Stenosis (3) Cervical Spondylosis (4) Cervical Radiculopathy (5) H/O Cervical surgery Patient to be continued on Morphine and norco D/w Dr. Kelly and he concurred. Subjective Date patient seen: May 12, 2019 Time patient seen: 08:00 - am Allergies: Coded Allergies: No Known Allergies (Unverified , 05/08/19) Subjective REVIEW OF SYSTEMS: Denies rash, fever, chills, sweating, dizziness, drowsiness, blurred vision, sore throat, change in weight. No shortness of breath or chest pain. No nausea, vomiting, or blood in the stool or urine. He complains of generalized body pain. SUBJECTIVE: Patient reports that he continues to have pain but it has been at a moderate level and continues to do PT at the best of his abilities. He has used 3 doses of Morphine and 2 doses of Stella in the last 24hrs allowing him to tolerate the pain. No new complaints at this time. Objective Last 24 Hour Vital Signs Date Time Temp Pulse Resp B/P (MAP) Pulse Ox O2 Delivery O2 Flow Rate FiO2 05/12/19 08:00 98.7 83 16 120/70 (87) 97 82 05/12/19 07:45 76 20 96 Room Air 21 05/12/19 04:00 97.7 83 18 137/83 (101) 97 05/12/19 00:00 99.7 80 20 130/81 (97) 97 05/11/19 21:00 Room Air 05/11/19 20:18 92 18 96 Room Air 21 05/11/19 20:00 100.4 86 18 140/92 (108) 97 05/11/19 17:57 97.9 05/11/19 16:00 100.4 96 18 136/86 (103) 97 05/11/19 12:00 97.6 70 20 137/72 (93) 97 05/11/19 10:36 98.9 05/11/19 09:21 98.9 05/11/19 09:00 Room Air Intake and Output 05/11/19 05/12/19 19:00 07:00 Intake Total 1350 ml 750 ml Output Total 1400 ml 1000 ml Balance -50 ml -250 ml Intake Oral 1200 ml IV Total 150 ml 750 ml Output Urine Total 1400 ml 1000 ml # Bowel Movements 2 Laboratory Tests 05/12/19 05:23: White Blood Count 8.9, Red Blood Count 3.74L, Hemoglobin 10.2L, Hematocrit 31.4L , Mean Corpuscular Volume 84, Mean Corpuscular Hemoglobin 27.2, Mean Corpuscular Hemoglobin Concent 32.3, Red Cell Distribution Width 14.7, Platelet Count 300, Mean Platelet Volume 4.8L, Neutrophils (%) (Auto) 70.6, Lymphocytes ( %) (Auto) 20.7, Monocytes (%) (Auto) 6.2, Eosinophils (%) (Auto) 1.9, Basophils (%) (Auto) 0.6, Sodium Level 140, Potassium Level 4.9, Chloride Level 107, Carbon Dioxide Level 29, Anion Gap 4L, Blood Urea Nitrogen 31H, Creatinine 0.9, Estimat Glomerular Filtration Rate , Glucose Level 90, Calcium Level 9.4 Height (Feet): 5 Height (Inches): 7.00 Weight (Pounds): 107 Objective GENERAL: Alert, awake, and oriented. LUNGS: Decreased breath sounds bilaterally. HEART: S1 and S2, regular. ABDOMEN: Soft, nontender, scars noted. EXTREMITIES: No cyanosis. No clubbing. NEURO: No changes. Fernando Acosta May 12, 2019 08:47
[2019-05-12] MEDS: Ertapenem 1 GM in NS 55 ML IVPB SCH (09:01)
--- NOTE | 2019-05-12 10:50 | General Progress Note ---
Assessment/Plan Assessment/Plan: S: My pain is better O: bed bound, relatively controlled pain. No Cp or sob PHYSICAL EXAMINATION:HEAD AND NECK: Atraumatic and normocephalic. CHEST: Clear to auscultation. No wheezing.ABDOMEN: Soft. No organomegaly. MUSCULOSKELETAL: Positive for quadriparesis, paraplegia, NEUROLOGY: The patient is awake, alert, oriented x3. LABORATORY DATA: Labs dated Oct 2st reviewed IMAGING: CXR ASSESSMENT: 1. Acute on chronic pain. 2. Quadriparesis and cervical injuries. 3. UTI.Mixed, 4. Pain management. 5. Bedridden and quadriplegic. 6. GI and DVT prophylaxis. 7. Neurogenic bladder. 8. Prostate CA Plan: I reviewed note from pain management Culture targeted Abx treatment placement in progress Subjective Allergies: Coded Allergies: No Known Allergies (Unverified , 05/08/19) Objective Last 24 Hour Vital Signs Date Time Temp Pulse Resp B/P (MAP) Pulse Ox O2 Delivery O2 Flow Rate FiO2 05/12/19 08:00 98.7 83 16 120/70 (87) 97 82 05/12/19 07:45 76 20 96 Room Air 21 05/12/19 04:00 97.7 83 18 137/83 (101) 97 05/12/19 00:00 99.7 80 20 130/81 (97) 97 05/11/19 21:00 Room Air 05/11/19 20:18 92 18 96 Room Air 21 05/11/19 20:00 100.4 86 18 140/92 (108) 97 05/11/19 17:57 97.9 05/11/19 16:00 100.4 96 18 136/86 (103) 97 05/11/19 12:00 97.6 70 20 137/72 (93) 97 Intake and Output 05/11/19 05/12/19 18:59 06:59 Intake Total 1275 ml 825 ml Output Total 1400 ml 1000 ml Balance -125 ml -175 ml Intake Oral 1200 ml IV Total 75 ml 825 ml Output Urine Total 1400 ml 1000 ml # Bowel Movements 2 Laboratory Tests 05/12/19 05:23: White Blood Count 8.9, Red Blood Count 3.74L, Hemoglobin 10.2L, Hematocrit 31.4L , Mean Corpuscular Volume 84, Mean Corpuscular Hemoglobin 27.2, Mean Corpuscular Hemoglobin Concent 32.3, Red Cell Distribution Width 14.7, Platelet Count 300, Mean Platelet Volume 4.8L, Neutrophils (%) (Auto) 70.6, Lymphocytes ( %) (Auto) 20.7, Monocytes (%) (Auto) 6.2, Eosinophils (%) (Auto) 1.9, Basophils (%) (Auto) 0.6, Sodium Level 140, Potassium Level 4.9, Chloride Level 107, Carbon Dioxide Level 29, Anion Gap 4L, Blood Urea Nitrogen 31H, Creatinine 0.9, Estimat Glomerular Filtration Rate , Glucose Level 90, Calcium Level 9.4 Height (Feet): 5 Height (Inches): 7.00 Weight (Pounds): 107 Tim Godinez MD May 12, 2019 10:50
--- NOTE | 2019-05-12 11:52 | NUR ---
CASE MANAGEMENT:REVIEW 05/12/19 SI: AC/CHR PAIN. UTI NEUROGENIC BLADDER 98.7 83 16 120/70 97% ON RA H/H-10.2/31.4 BUN+31 IS: IV ERTAPENEM Q24 IV MORPHINE Q6HRS PRN PROTONIX PO QD LOVENOX SQ Q24 : MED/SURG STATUS DCP: FROM [facility] PLAN: PATIENT CAME FROM [facility] BUT IS REFUSING TO RETURN WILL REFER TO MY ABDELRAHMAN SANTOS [facility]
[2019-05-12 12:00] VITALS: BP 139/85
--- NOTE | 2019-05-12 13:05 | Surgery Progress Note ---
Surgery Progress Note Subjective Symptoms: improved, tolerating diet, passing flatus Objective Last 24 Hour Vital Signs Date Time Temp Pulse Resp B/P (MAP) Pulse Ox O2 Delivery O2 Flow Rate FiO2 05/12/19 12:00 97.9 79 15 139/85 (103) 99 05/12/19 09:00 Room Air 05/12/19 08:00 98.7 83 16 120/70 (87) 97 82 05/12/19 07:45 76 20 96 Room Air 21 05/12/19 04:00 97.7 83 18 137/83 (101) 97 05/12/19 00:00 99.7 80 20 130/81 (97) 97 05/11/19 21:00 Room Air 05/11/19 20:18 92 18 96 Room Air 21 05/11/19 20:00 100.4 86 18 140/92 (108) 97 05/11/19 17:57 97.9 05/11/19 16:00 100.4 96 18 136/86 (103) 97 I&O Intake and Output 05/11/19 05/12/19 18:59 06:59 Intake Total 1275 ml 825 ml Output Total 1400 ml 1000 ml Balance -125 ml -175 ml Intake Oral 1200 ml IV Total 75 ml 825 ml Output Urine Total 1400 ml 1000 ml # Bowel Movements 2 Dressing: dry Wound: clean Cardiovascular: RSR Respiratory: clear Abdomen: soft, flat, non-tender, present bowel sounds Extremities: no tenderness, no cyanosis Laboratory Tests Test 05/12/19 05:23 White Blood Count 8.9 K/UL (4.8-10.8) Red Blood Count 3.74 M/UL (4.70-6.10) L Hemoglobin 10.2 G/DL (14.2-18.0) L Hematocrit 31.4 % (42.0-52.0) L Mean Corpuscular Volume 84 FL (80-99) Mean Corpuscular Hemoglobin 27.2 PG (27.0-31.0) Mean Corpuscular Hemoglobin Concent 32.3 G/DL (32.0-36.0) Red Cell Distribution Width 14.7 % (11.6-14.8) Platelet Count 300 K/UL (150-450) Mean Platelet Volume 4.8 FL (6.5-10.1) L Neutrophils (%) (Auto) 70.6 % (45.0-75.0) Lymphocytes (%) (Auto) 20.7 % (20.0-45.0) Monocytes (%) (Auto) 6.2 % (1.0-10.0) Eosinophils (%) (Auto) 1.9 % (0.0-3.0) Basophils (%) (Auto) 0.6 % (0.0-2.0) Sodium Level 140 MMOL/L (136-145) Potassium Level 4.9 MMOL/L (3.5-5.1) Chloride Level 107 MMOL/L (98-107) Carbon Dioxide Level 29 MMOL/L (21-32) Anion Gap 4 mmol/L (5-15) L Blood Urea Nitrogen 31 mg/dL (7-18) H Creatinine 0.9 MG/DL (0.55-1.30) Estimat Glomerular Filtration Rate mL/min (>60) Glucose Level 90 MG/DL (74-106) Calcium Level 9.4 MG/DL (8.5-10.1) Plan Problems: (1) Trauma (2) Neck pain Assessment & Plan: Findings: There is evidence of prior spinal decompression surgery, with laminotomy or laminectomy defects extending from C3 through T1. There is ankylosis of the C4-5 disc, presumably postsurgical. No acute fractures. No dislocations. There is very slight cervicothoracic scoliotic deformity which may be an artifact of positioning. At C2-3, a large osteophyte and/or ossification of the posterior longitudinal ligament protrudes posteriorly, results in borderline narrowing of the spinal canal and may impinge slightly upon the left side of the anterior cord. The neural foramina are preserved. At C3-4, posterior osteophytes and posterior longitudinal ligament ossification there is spinal canal. However, there is a left-sided laminectomy defect decompresses the spinal canal. There is severe stenosis of the right neural foramen and near complete obliteration of the left neural foramen. At C4-5, no significant disc bulge or protrusion or spinal stenosis. There is severe neural foraminal stenosis bilaterally. At C5-6, no significant disc bulge or protrusion or spinal stenosis. There is severe bilateral neural foraminal stenosis. At C6-7, there is mild bilateral neural foraminal stenosis. No significant disc bulge or protrusion or spinal canal stenosis. At C7-T1, there is moderate to severe bilateral neural foraminal stenosis. No significant disc bulge or protrusion or spinal stenosis. Lung apices demonstrate fibrotic changes and bullous changes. There is a 1.7 cm diameter masslike opacity at the right lung apex. 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 This may represent a focus of neoplasm or scarring. Consider dedicated chest CT for further evaluation Impression: Right upper lobe opacities, likely but not definitively calcified. Note that the apical nodules were described on recent cervical spine CT. No acute process otherwise Recommend dedicated chest CT for better characterization (3) Fall (4) Open wound Assessment & Plan: Pt presented on admission with contractures , Multiple abrasions from fall at SNF. Pt noted to have two abrasions in close proximity to R clavicle. Both wounds are moist with small amt biofilm. No exudate noted.Abrasion T r elbow . base of wound is pink and dry. dry scab noted to R knee. Pt is emaciated. Non-blanching erythema without induration noted to Sacrum and Bilat ischial tuberosities. Pt denied tenderness when each affected area palpated. R and L heels are blanchable . NO other skin concerns noted. Pt has been educated of potential risks for skin breakdown as pt can be resistive to being repositioned and personal care. Pt encouraged to comply with repositioning and to allowing staff to perform skin care when soiled. Pt verbalized recently having pressure injury on buttocks and was informed risks is greater due to pt recently having pressure injuries, and also due to contractures. Tx.plan: Apply Moisture Barrier paste to Sacrum,R and L buttocks. Cover each area with Optifoam drsg. Change every 3 Days and prn. Apply Cavilon Skin Barrier to R and L hips. Cover each hip with Optifoam drsg. Change every 7 days and prn. Apply Cavilon Skin Barrier to both heels. Cover each heel with Optifoam drsg. Change every 7 days and prn. Cleanse abrasions R shoulder with saline. Apply Silvaosrb Gel. Cover with Optifoam drsg. Change every 7 days and prn. Reposition at least every 2hours or as tolerated. Place pillow between knees. Off-load heels with pillow. Benyamini,Pablito May 12, 2019 13:05
--- NOTE | 2019-05-12 13:17 | NUR ---
NURSE NOTES: Pt is requesting to be seen by physical therapy. RN notified Dr. Godinez and asked if he would like to order.
--- NOTE | 2019-05-12 13:18 | NUR ---
RD ASSESSMENT & RECOMMENDATIONS SEE CARE ACTIVITY FOR COMPLETE ASSESSMENT DAILY ESTIMATED NEEDS: Needs based on Underweight, Wounds/ 44.5kg 35-40 kcals/kg 8370-9896 total kcals 1.25-2.0 g protein/kg 56-89 g total protein 25-30 mL/kg 7895-7298 total fluid mLs NUTRITION DIAGNOSIS: Increased kcal/prot intake needs R/T underweight status, wound healing as evidenced by pt cachectic w/ moderate-severe generalized wasting, pt @ 61% IBW w/ low BMI per guidelines, admitted w/ multiple wounds, refer to WC eval.. CURRENT DIET:REGULAR PO DIET RECOMMENDATIONS: Liberalized REGULAR/ texture per TRAPPER ANIMAL or as tolerated + ENSURE ENLIVE TID ADDITIONAL RECOMMENDATIONS: * CALIBRATED bedscale wt for accurate CBW, weekly wt monitoring * Ensure Enlive BID w/ meals (350kcal/20g prot per bottle) * Rec appetite stimulant to help improve appetite- N/a, pt w/ good intake * Wound healing: Add MVI w/ min 1 tab QD + Vit C 500mg QD add Donavan 1pkt BID * Consider karina count x 48 hrs to ensure adequate oral intake * Monitor BGs closely, need for hypoglycemics/carb controlled diet- A1C 5.9
--- NOTE | 2019-05-12 13:25 | NUR ---
NURSE NOTES: Left message for SERA Mcmullen pt is requesting to go to SNF "[facility]" at [place]
--- NOTE | 2019-05-12 13:56 | Hematology/Onc Progress Note ---
Assessment/Plan Assessment/Plan Assessment and Recs: # Anemia of chronic disease due to underlying chronic medical issues, multifactorial --> Anemia workup has been ordered, rule out gi bleed --> No evidence of hemolysis is noted, peripheral smear has been reviewed. --> Hgb goal >7. Transfuse prn. --> Epogen or iron at this time is not particularly indicated --> Medications have been reviewed --> low threshold for gi evaluation in case has occult + --> hgb 9.5-->10.2 # Apical lung mass --> cxr completed --> repeat ct in appeox 6mo --> as per pulm # Prostate cancer history --> psa is 1.35 --> trend q6mo # C7 spinal cord injury Wheelchair bound --> consider to obtain pt/ot --> consider exercise of uppper ext --> neuro surg recs # Dehydration --> appears prenal --> per renal # DJD # DVt ppx lovenox Greatly appreciate consultation. Subjective Constitutional: Denies: no symptoms, chills, fever, malaise, weakness, other HEENT: Denies: no symptoms, eye pain, blurred vision, tearing, double vision, ear pain, ear discharge, nose pain, nose congestion, throat pain, throat swelling, mouth pain, mouth swelling, other Cardiovascular: Denies: no symptoms, chest pain, edema, irregular heart rate, lightheadedness, palpitations, syncope, other Respiratory: Denies: no symptoms, cough, shortness of breath, SOB with excertion, SOB at rest, sputum, wheezing, other Gastrointestinal/Abdominal: Denies: no symptoms, abdomen distended, abdominal pain, black stools, tarry stools, blood in stool, constipated, diarrhea, difficulty swallowing, nausea, poor appetite, poor fluid intake, rectal bleeding , vomiting, other Genitourinary: Denies: no symptoms, burning, discharge, frequency, flank pain, hematuria, incontinence, pain, urgency, other Neurologic/Psychiatric: Denies: no symptoms, anxiety, depressed, emotional problems, headache, numbness, paresthesia, pre-existing deficit, seizure, tingling, tremors, weakness, other Endocrine: Denies: no symptoms, excessive sweating, flushing, intolerance to cold, intolerance to heat, increased hunger, increased thirst, increased urine, unexplained weight gain, unexplained weight loss, other Allergies: Coded Allergies: No Known Allergies (Unverified , 05/08/19) Subjective 05/10: no events, no bleeding, no night sweats, no f/c 05/11: no events, no bleeding, meds reviewed 05/12: no f/c, no bleeding, labs noted, getting pt/ot Objective Objective Current Medications Medications (Trade) Dose Ordered Sig/Omar Route PRN Reason Start Time Stop Time Status Last Admin Dose Admin Acetaminophen (Tylenol) 650 mg Q4H PRN ORAL Mild Pain (Pain Scale 1-3) 05/08/19 23:15 06/07/19 23:14 05/11/19 17:27 Acetaminophen/ Hydrocodone Bitart ([place] 5/325) 1 tab Q6H PRN ORAL Moderate Pain (4-6) 05/09/19 19:45 05/16/19 19:44 05/11/19 08:51 Albuterol/ Ipratropium (Albuterol/ Ipratropium) 3 ml Q4H PRN HHN Shortness of Breath 05/08/19 23:15 05/13/19 23:14 Dextrose (Dextrose 50%) 25 ml Q30M PRN IV Hypoglycemia 05/08/19 23:15 06/07/19 23:14 Dextrose (Dextrose 50%) 50 ml Q30M PRN IV Hypoglycemia 05/08/19 23:15 06/07/19 23:14 Enoxaparin Sodium (Lovenox) 40 mg Q24H SUBQ 05/09/19 06:00 06/08/19 05:59 05/11/19 05:39 Ertapenem 1 gm/ Sodium Chloride 55 ml @ 110 mls/hr Q24H IVPB 05/11/19 10:00 05/16/19 09:59 05/12/19 09:01 Morphine Sulfate (Morphine Sulfate) 2 mg Q6H PRN IVP Severe Pain (7-10) 05/09/19 19:45 05/16/19 19:44 05/12/19 09:00 Ondansetron HCl (Zofran) 4 mg Q6H PRN IVP Nausea & Vomiting 05/11/19 17:30 06/10/19 17:29 05/11/19 17:27 Pantoprazole (Protonix) 40 mg DAILY ORAL 05/09/19 09:00 06/08/19 08:59 05/10/19 08:59 Last 24 Hour Vital Signs Date Time Temp Pulse Resp B/P (MAP) Pulse Ox O2 Delivery O2 Flow Rate FiO2 05/12/19 12:00 97.9 79 15 139/85 (103) 99 05/12/19 09:00 Room Air 05/12/19 08:00 98.7 83 16 120/70 (87) 97 82 05/12/19 07:45 76 20 96 Room Air 21 05/12/19 04:00 97.7 83 18 137/83 (101) 97 05/12/19 00:00 99.7 80 20 130/81 (97) 97 05/11/19 21:00 Room Air 05/11/19 20:18 92 18 96 Room Air 21 05/11/19 20:00 100.4 86 18 140/92 (108) 97 05/11/19 17:57 97.9 05/11/19 16:00 100.4 96 18 136/86 (103) 97 05/11/19 12:00 97.6 70 20 137/72 (93) 97 05/11/19 10:36 98.9 05/11/19 09:21 98.9 05/11/19 09:00 Room Air 05/11/19 08:00 98.2 77 20 137/72 (93) 96 05/11/19 05:25 Room Air 05/11/19 05:15 Room Air 05/11/19 04:00 98.9 80 19 129/78 (95) 95 05/11/19 00:00 99.0 82 20 129/85 (100) 96 05/10/19 21:00 Room Air 05/10/19 20:00 99.5 88 19 113/71 (85) 96 05/10/19 16:00 98.3 69 19 144/96 (112) 99 Intake and Output 05/11/19 05/12/19 18:59 06:59 Intake Total 1275 ml 825 ml Output Total 1400 ml 1000 ml Balance -125 ml -175 ml Intake Oral 1200 ml IV Total 75 ml 825 ml Output Urine Total 1400 ml 1000 ml # Bowel Movements 2 Labs Test 05/10/19 06:00 05/11/19 05:55 05/12/19 05:23 White Blood Count 7.3 K/UL (4.8-10.8) 7.5 K/UL (4.8-10.8) 8.9 K/UL (4.8-10.8) Red Blood Count 3.70 M/UL (4.70-6.10) 3.54 M/UL (4.70-6.10) 3.74 M/UL (4.70-6.10) Hemoglobin 10.0 G/DL (14.2-18.0) 9.5 G/DL (14.2-18.0) 10.2 G/DL (14.2-18.0) Hematocrit 31.2 % (42.0-52.0) 29.9 % (42.0-52.0) 31.4 % (42.0-52.0) Mean Corpuscular Volume 84 FL (80-99) 84 FL (80-99) 84 FL (80-99) Mean Corpuscular Hemoglobin 27.0 PG (27.0-31.0) 27.0 PG (27.0-31.0) 27.2 PG (27.0-31.0) Mean Corpuscular Hemoglobin Concent 31.9 G/DL (32.0-36.0) 32.0 G/DL (32.0-36.0) 32.3 G/DL (32.0-36.0) Red Cell Distribution Width 14.6 % (11.6-14.8) 14.7 % (11.6-14.8) 14.7 % (11.6-14.8) Platelet Count 276 K/UL (150-450) 276 K/UL (150-450) 300 K/UL (150-450) Mean Platelet Volume 4.7 FL (6.5-10.1) 5.1 FL (6.5-10.1) 4.8 FL (6.5-10.1) Neutrophils (%) (Auto) 60.1 % (45.0-75.0) 61.6 % (45.0-75.0) 70.6 % (45.0-75.0) Lymphocytes (%) (Auto) 27.5 % (20.0-45.0) 26.0 % (20.0-45.0) 20.7 % (20.0-45.0) Monocytes (%) (Auto) 9.3 % (1.0-10.0) 8.9 % (1.0-10.0) 6.2 % (1.0-10.0) Eosinophils (%) (Auto) 1.9 % (0.0-3.0) 2.1 % (0.0-3.0) 1.9 % (0.0-3.0) Basophils (%) (Auto) 1.1 % (0.0-2.0) 1.3 % (0.0-2.0) 0.6 % (0.0-2.0) Sodium Level 138 MMOL/L (136-145) 140 MMOL/L (136-145) 140 MMOL/L (136-145) Potassium Level 5.2 MMOL/L (3.5-5.1) 4.8 MMOL/L (3.5-5.1) 4.9 MMOL/L (3.5-5.1) Chloride Level 107 MMOL/L (98-107) 108 MMOL/L (98-107) 107 MMOL/L (98-107) Carbon Dioxide Level 26 MMOL/L (21-32) 25 MMOL/L (21-32) 29 MMOL/L (21-32) Anion Gap 5 mmol/L (5-15) 7 mmol/L (5-15) 4 mmol/L (5-15) Blood Urea Nitrogen 29 mg/dL (7-18) 27 mg/dL (7-18) 31 mg/dL (7-18) Creatinine 1.1 MG/DL (0.55-1.30) 1.0 MG/DL (0.55-1.30) 0.9 MG/DL (0.55-1.30) Estimat Glomerular Filtration Rate mL/min (>60) mL/min (>60) mL/min (>60) Glucose Level 95 MG/DL (74-106) 90 MG/DL (74-106) 90 MG/DL (74-106) Calcium Level 9.5 MG/DL (8.5-10.1) 9.2 MG/DL (8.5-10.1) 9.4 MG/DL (8.5-10.1) Troponin I 0.000 ng/mL (0.000-0.056) Height (Feet): 5 Height (Inches): 7.00 Weight (Pounds): 107 Objective Vital Signs reviewed General Appearance: normal inspection, Chronically Ill ENT: normal ENT inspection, hearing grossly normal, normal voice Chest: normal inspection, lungs clear, normal breath sounds, no respiratory distress, no retraction, no wheezing CV: regular rate, rhythm, no edema GI: normal inspection, normal bowel sounds, non tender, soft, no guarding, no hernia : no CVA tenderness Musculoskeletal: normal inspection, back normal, normal range of motion Neurologic: normal inspection, alert, responsive, motor weakness Kevin Carbone MD May 12, 2019 13:55
--- NOTE | 2019-05-12 14:19 | Infectious Diseases Prog Note ---
Assessment/Plan Problems: (1) Catheter-associated urinary tract infection Assessment & Plan: present on admission, with culture is growing ESBL producing E coli and Klebsiella pneumonia , will treat with ertapenem for 7 days total , had his mcclendon catheter changed already (2) Lung nodule seen on imaging study Assessment & Plan: in the RUL , rule out mets from prostate CA, pulmonary is following , oncology eval is in progress (3) C7 spinal cord injury Assessment & Plan: recommend spine ortho eval , and pain management (4) Neck pain Assessment & Plan: due to the above , continue pain meds as per primary (5) Prostate CA Assessment & Plan: with RUL lung nodule, rule out mets, recommend oncology eval Subjective Constitutional: Reports: no symptoms HEENT: Reports: no symptoms Respiratory: Reports: no symptoms Breasts: Reports: no symptoms Cardiovascular: Reports: no symptoms Gastrointestinal/Abdominal: Reports: no symptoms Genitourinary: Reports: no symptoms Neurologic: Reports: no symptoms Psychiatric: Reports: no symptoms Skin: Reports: no symptoms Endocrine: Reports: no symptoms Hematologic: Reports: no symptoms Musculoskeletal: Reports: no symptoms Allergies: Coded Allergies: No Known Allergies (Unverified , 05/08/19) Objective Vital Signs Last 24 Hour Vital Signs Date Time Temp Pulse Resp B/P (MAP) Pulse Ox O2 Delivery O2 Flow Rate FiO2 05/12/19 12:00 97.9 79 15 139/85 (103) 99 05/12/19 09:00 Room Air 05/12/19 08:00 98.7 83 16 120/70 (87) 97 82 05/12/19 07:45 76 20 96 Room Air 21 05/12/19 04:00 97.7 83 18 137/83 (101) 97 05/12/19 00:00 99.7 80 20 130/81 (97) 97 05/11/19 21:00 Room Air 05/11/19 20:18 92 18 96 Room Air 21 05/11/19 20:00 100.4 86 18 140/92 (108) 97 05/11/19 17:57 97.9 05/11/19 16:00 100.4 96 18 136/86 (103) 97 Height (Feet): 5 Height (Inches): 7.00 Weight (Pounds): 107 General Appearance: WD/WN, no acute distress HEENT: normocephalic, atraumatic, anicteric, mucous membranes moist Respiratory/Chest: chest wall non-tender, lungs clear, normal breath sounds, no respiratory distress, no accessory muscle use Cardiovascular: normal peripheral pulses, normal rate, regular rhythm, no gallop/murmur, no JVD Abdomen: normal bowel sounds, soft, non tender, no organomegaly, non distended , no mass, no scars Extremities: no cyanosis, no clubbing Skin: no rash, no lesions Neurologic/Psychiatric: alert, oriented x 3 Lymphatic: no neck adenopathy, no groin adenopathy Musculoskeletal: normal muscle bulk, no effusion Laboratory Tests Test 05/12/19 05:23 White Blood Count 8.9 K/UL (4.8-10.8) Red Blood Count 3.74 M/UL (4.70-6.10) L Hemoglobin 10.2 G/DL (14.2-18.0) L Hematocrit 31.4 % (42.0-52.0) L Mean Corpuscular Volume 84 FL (80-99) Mean Corpuscular Hemoglobin 27.2 PG (27.0-31.0) Mean Corpuscular Hemoglobin Concent 32.3 G/DL (32.0-36.0) Red Cell Distribution Width 14.7 % (11.6-14.8) Platelet Count 300 K/UL (150-450) Mean Platelet Volume 4.8 FL (6.5-10.1) L Neutrophils (%) (Auto) 70.6 % (45.0-75.0) Lymphocytes (%) (Auto) 20.7 % (20.0-45.0) Monocytes (%) (Auto) 6.2 % (1.0-10.0) Eosinophils (%) (Auto) 1.9 % (0.0-3.0) Basophils (%) (Auto) 0.6 % (0.0-2.0) Sodium Level 140 MMOL/L (136-145) Potassium Level 4.9 MMOL/L (3.5-5.1) Chloride Level 107 MMOL/L (98-107) Carbon Dioxide Level 29 MMOL/L (21-32) Anion Gap 4 mmol/L (5-15) L Blood Urea Nitrogen 31 mg/dL (7-18) H Creatinine 0.9 MG/DL (0.55-1.30) Estimat Glomerular Filtration Rate mL/min (>60) Glucose Level 90 MG/DL (74-106) Calcium Level 9.4 MG/DL (8.5-10.1) Current Medications Medications (Trade) Dose Ordered Sig/Omar Route PRN Reason Start Time Stop Time Status Last Admin Dose Admin Acetaminophen (Tylenol) 650 mg Q4H PRN ORAL Mild Pain (Pain Scale 1-3) 05/08/19 23:15 06/07/19 23:14 05/11/19 17:27 Acetaminophen/ Hydrocodone Bitart ([place] 5/325) 1 tab Q6H PRN ORAL Moderate Pain (4-6) 05/09/19 19:45 05/16/19 19:44 05/11/19 08:51 Albuterol/ Ipratropium (Albuterol/ Ipratropium) 3 ml Q4H PRN HHN Shortness of Breath 05/08/19 23:15 05/13/19 23:14 Dextrose (Dextrose 50%) 25 ml Q30M PRN IV Hypoglycemia 05/08/19 23:15 06/07/19 23:14 Dextrose (Dextrose 50%) 50 ml Q30M PRN IV Hypoglycemia 05/08/19 23:15 06/07/19 23:14 Enoxaparin Sodium (Lovenox) 40 mg Q24H SUBQ 05/09/19 06:00 06/08/19 05:59 05/11/19 05:39 Ertapenem 1 gm/ Sodium Chloride 55 ml @ 110 mls/hr Q24H IVPB 05/11/19 10:00 05/16/19 09:59 05/12/19 09:01 Morphine Sulfate (Morphine Sulfate) 2 mg Q6H PRN IVP Severe Pain (7-10) 05/09/19 19:45 05/16/19 19:44 05/12/19 09:00 Ondansetron HCl (Zofran) 4 mg Q6H PRN IVP Nausea & Vomiting 05/11/19 17:30 06/10/19 17:29 05/11/19 17:27 Pantoprazole (Protonix) 40 mg DAILY ORAL 05/09/19 09:00 06/08/19 08:59 05/10/19 08:59 Raya Grigsby M.D. May 12, 2019 14:19
--- NOTE | 2019-05-12 15:57 | NUR ---
DISCHARGED PLANNED DISCUSSED DISCHARGE WITH PATIENT AT BEDSIDE PATIENT TO [facility] [address] T:[phone] FOR NURSE TO NURSE REPORT ROOM# 9A SKILLED
[2019-05-12 16:00] VITALS: BP 132/82
--- NOTE | 2019-05-12 16:45 | NUR ---
NURSE NOTES: Notified Dr. Godinez that Medication Recon needs to be done for [facility] Addendum: 05/12/19 at 1713 by DOUG WOO RN NURSE NOTES: RN asked if Lennon needs to be DC'd at [facility], no response. RN asked Dr. Grigsby
[2019-05-12] MEDS ORDERED: ACETAMINOPHEN325 M1 ORAL (17:05)
[2019-05-12] MEDS ORDERED: INVANZ1 G1 IVPB (17:06)
[2019-05-12] MEDS ORDERED: NORCO 5-325 TA1 EACH ORAL (17:08)
[2019-05-12] MEDS ORDERED: PANTOPRAZOLE SO40 MG ORAL (17:08)
--- NOTE | 2019-05-12 17:11 | NUR ---
NURSE NOTES: RN called [facility] for molded goods spot picker at [phone], per [facility] pickup will need to be 1830
--- NOTE | 2019-05-12 17:23 | NUR ---
NURSE NOTES: Called to report to [facility] at [facility] [address].
[2019-05-12] MEDS: HYDROcodone/Acetamin 5/325 tab ORAL PRN (17:54)
--- NOTE | 2019-05-12 19:04 | NUR ---
HAND-OFF: Report given to FCO Diaz.
--- NOTE | 2019-05-12 19:30 | NUR ---
NURSE NOTES: RECEIVED PT FROM [facility]. PT IS AWAKE, AAOX4, ON ROOM AIR, NO ACUTE DISTRESS NOTED. WAITING FOR AMBULANCE TO ARRIVE. IV ON LEFT FA 20G IS INTACT AND PATENT. [facility] CATH IS INTACT, DRAINING YELLOW URINE. BED IS LOCKED AND LOW, BED ALARMS ACTIVE, SIDE RAILS UP X2, AND CALL LIGHT IS WITHIN REACH. WILL CONTINUE TO MONITOR.
--- NOTE | 2019-05-12 22:30 | NUR ---
NURSE NOTES: PT WAS SAFELY DISCHARGE VIA GURNEY BY EMS WITH BELONGINGS. D/C WITH [facility] AND IV ACCESS TO FACILITY.
--- NOTE | 2019-05-15 10:53 | Discharge Summary ---
Discharge Summary Discharge Summary _ DATE OF ADMISSION: 05/08/2019 DATE OF DISCHARGE: 05/12/2019 DISCHARGED BY: Dr Godinez REASON FOR ADMISSION: 74 years old male with past medical history of hypertension, prostate cancer, history of spinal cord injury C 7, presented from the assisted facility for evaluation. Patient was complaining of neck pain and lower extremity weakness. At baseline patient wheelchair-bound secondary to history of C 7 spinal cord injury. Patient reported falling out of his wheelchair several weeks ago. He reported worsening pain to his neck low back and lower extremities. Upon evaluation vital signs were stable. Laboratory work-up revealed no leukocytosis , hemoglobin 10.6 , hematocrit 33.3. Platelet count 318. Stable electrolytes. BUN 28, creatinine 1.1. Glucose 125. Stable LFT. Albumin 2.6. CT of the cervical spine revealed no acute bony trauma. Extensive degenerative changes noted. Evidence of bullous COPD noted. 1.7 cm right apical lung mass. This may represent a focus of neoplasm or scarring. Urinalysis revealed evidence of pyuria , +2 leukocyte esterase and many bacteria. Patient was admitted for further management CONSULTANTS: pulmonary Dr. Jewell ID specialist tray worker Dr.De Quezada loom changeover operator/oncologist Dr. Carbone surgery Dr. Lamas pain specialist Dr. Kelly HOSPITAL COURSE: Patient admitted. Patient started on IV fluids and empiric antibiotic. Lennon catheter was changed . Renal parameters and electrolytes were closely monitored, electrolytes corrected as needed, nephrotoxins were avoided. Mild hyperkalemia was treated and prior to discharge potassium 4.9. Urine culture revealed growth of E. coli ESBL and Klebsiella pneumoniae ESBL; both with colony count more than 100 K. Antibiotics provided as per ID specialist recommendation. Patient will need to complete antibiotics at the facility as recommended by ID specialist. Supplemental oxygen was on board as needed to keep pulse oximetry above 92%. Pulse oximetry was stable on room air. CT of the cervical spine revealed 1.7 cm right apical lung mass. Patient will need high-resolution chest CT for further evaluation of this mass , which could be done as outpatient, Pain management was addressed as per pain specialist recommendations. Pain was controlled. Patient presented with multiply abrasions from fall at a assisted facility. Wound care provided as per surgeon recommendation. PSA was 1.35, oncologist recommended to trend PSA every 6 months. Hemoglobin and hematocrit were closely monitored with goal to keep hemoglobin above 7. Epogen or iron were not indicated. Anemia work-up was consistent with anemia of chronic disease. Hemoglobin and hematocrit remained in the baseline. No evidence of hemolysis. Peripheral smear had been reviewed. Prior to discharge hemoglobin 10.2 hematocrit 31.4. Patient clinically stabilized and was ready for discharge back to assisted facility. CT chest to be done as outpatient for follow-up of right apical lung mass. FINAL DIAGNOSES: Catheter associated urinary tract infection with E. coli ESBL and Klebsiella pneumonia ESBL Dehydration resolved Status post fall C 7 spinal cord injury Hyperkalemia resolved R apical lung mass /seen on CT scan Prostate cancer Wheelchair-bound Anemia of chronic disease Cervicalgia Cervical spinal stenosis Cervical radiculopathy Cervical spondylosis-history of cervical surgery DISCHARGE MEDICATIONS: See Medication Reconciliation list. DISCHARGE INSTRUCTIONS: Patient was discharged to the assisted facility. Follow up with medical doctor at the facility. I have been assigned to dictate discharge summary for this account. I was not involved in the patient's management. Vicki Guaman NP May 15, 2019 10:53
== END 2019-05-12 21:00 | DRG 466 ==
LOC: EDBD 20:21 → EMR 21:20 → 4E 22:15 → EDBEDREQ 22:43 → 4E 05-11 06:23
DX: T83.511A Infection and inflammatory reaction due to indwelling urethral catheter, initial encounter (principal); N17.9 Acute kidney failure, unspecified; E86.0 Dehydration; S14.107S Unspecified injury at C7 level of cervical spinal cord, sequela; W05.0XXS Fall from non-moving wheelchair, sequela; G82.50 Quadriplegia, unspecified; R64 Cachexia; Y84.6 Urinary catheterization as the cause of abnormal reaction of the patient, or of later complication, without mention of misadventure at the time of the procedure; Z68.1 Body mass index [BMI] 19.9 or less, adult; M48.02 Spinal stenosis, cervical region; N31.9 Neuromuscular dysfunction of bladder, unspecified; Z85.46 Personal history of malignant neoplasm of prostate; N39.0 Urinary tract infection, site not specified; B96.20 Unspecified Escherichia coli [E. coli] as the cause of diseases classified elsewhere; B96.1 Klebsiella pneumoniae [K. pneumoniae] as the cause of diseases classified elsewhere; G89.29 Other chronic pain; Z16.12 Extended spectrum beta lactamase (ESBL) resistance; R91.8 Other nonspecific abnormal finding of lung field; Z99.3 Dependence on wheelchair; D63.8 Anemia in other chronic diseases classified elsewhere; M47.22 Other spondylosis with radiculopathy, cervical region; E87.5 Hyperkalemia
CPT/HCPCS: 36415; 71045; 72125; 80048; 80053; 80061; 81003; 82553; 82728; 82746; 83036; 83540; 83550; 83615; 83735; 83880; 84153; 84484; 85025; 85610; 85730; 86850; 86900; 86901; 87081; 87086; 87181; 94664; 96365; 96375; 99285; J2405; J7620